=== PATIENT | male | born 1950 | race Caucasian/White ===

== ENCOUNTER 2022-09-10 06:06 | Inpatient (IN) ==
[2022-08-31 11:29] LABS: Basophils # (Auto) 0.05 K/mcL (0.00-0.30); Basophils % (Auto) 0.5 % (0.0-2.0); Eosinophils # (Auto) 0.17 K/mcL (0.00-0.70); Eosinophils % (Auto) 1.8 % (0.0-7.0); Hematocrit 35.6 % (40.1-51.0); Hemoglobin 11.3 g/dL (13.7-17.5); Lymphocytes # (Auto) 1.57 K/mcL (1.50-4.80); Lymphocytes % (Auto) 16.6 % (15.5-49.0); Mean Cell Volume 82.2 fL (80.0-100.0); Mean Corpuscular HGB Conc 31.7 g/dL (31.0-36.0); Mean Platelet Volume 8.4 fL (8.8-12.5); Monocytes # (Auto) 0.64 K/mcL (0.10-0.90); Monocytes % (Auto) 6.8 % (1.0-12.0); Platelet Count 451 K/mcL (140-440); RBC 4.33 M/mcL (4.63-6.08); Red Cell Distribution Width 14.3 % (11.5-14.5); WBC 9.4 K/mcL (4.5-11.0)
[2022-08-31 14:09] LABS: Blood Urea Nitrogen 15 mg/dL (8-23); Calcium 9.3 mg/dL (8.6-10.4); Carbon Dioxide 29 mmol/L (22-30); Chloride 93 mmol/L (96-108); Glomerular Filtration Rate 75; Glucose 92 mg/dL (70-105)
[~2022-09-10 06:06] MED LIST: IPRATROPIUM/ALBUTEROL 3 ML AMPUL.NEB NEB PRN; SCOPOLAMINE 1 PATCH PATCH TOPICAL PRN; ceFAZolin 2 GM in DEXTROSE 5% IN WATER 50 ML IV SCH
[2022-09-10] MEDS ORDERED: 0.9 % SODIUM CHLORIDE 250 ML IV SCH (07:15)
[2022-09-10] MEDS ORDERED: fentaNYL 250 MCG/5 ML VIAL IV ONE (08:32)
[2022-09-10] MEDS ORDERED: PHENYLephrine 1 MG/10 ML SYRINGE (ANEST) ONE (08:32)
[2022-09-10] MEDS ORDERED: DEXAMETHASONE 10 MG/ML VIAL ONE (08:32)
[2022-09-10] MEDS ORDERED: 0.9 % SODIUM CHLORIDE 1,000 ML BAG IV ONE (08:32)
[2022-09-10] MEDS ORDERED: LIDOCAINE HCL/PF 100 MG/5 ML SYRINGE IV ONE (08:32)
[2022-09-10] MEDS ORDERED: ROCURONIUM 10 MG/ML ML IV ONE (08:32)
[2022-09-10] MEDS ORDERED: PROPOFOL 200 MG/20 ML VIAL IV ONE (08:32)
[2022-09-10] MEDS ORDERED: CALCIUM GLUCONATE 4.65 MEQ/10 ML VIAL ONE (08:32)
[2022-09-10] MEDS ORDERED: ceFAZolin 1 GM VIAL ONE (08:32)
[2022-09-10] MEDS ORDERED: ePHEDrine 50 MG/5 ML SYRINGE (ANEST) IV ONE (08:32)
[2022-09-10] MEDS ORDERED: ROPIVACAINE HCL/PF 20 ML VIAL IJ ONE (08:32)
[2022-09-10] MEDS ORDERED: SUGAMMADEX SODIUM 200 MG/2 ML VIAL IV ONE (08:32)
[2022-09-10] MEDS ORDERED: CALCIUM GLUCONATE 4.65 MEQ in DEXTROSE 5% IN WATER 50 ML IV SCH (12:00)
[2022-09-10] MEDS ORDERED: VANCOMYCIN 1 GM VIAL TOPICAL SCH (12:50)
[2022-09-10] MEDS ORDERED: LIDOCAINE W/EPI 0.5% 50 ML VIAL IJ ONE (12:57)
[2022-09-10] MEDS ORDERED: BUPIVACAINE PF 0.5% 10 ML VIAL IJ ONE (12:57)
[2022-09-10] MEDS ORDERED: NALOXONE HCL 0.4 MG/ML VIAL IV PRN (13:17)
[2022-09-10] MEDS ORDERED: IPRATROPIUM/ALBUTEROL 3 ML AMPUL.NEB NEB PRN (13:17)
[2022-09-10] MEDS ORDERED: HYDROmorphone 0.5 MG/0.5 ML SYRINGE IV PRN (13:17)
[2022-09-10] MEDS ORDERED: fentaNYL 100 MCG/2 ML VIAL IV PRN (13:17)
[2022-09-10] MEDS ORDERED: ACETAMINOPHEN 1,000 MG/100 ML BAG IV ONE (13:17)
[2022-09-10] MEDS ORDERED: ONDANSETRON 4 MG/2 ML VIAL IV PRN ×2 (13:17→13:55)
[2022-09-10] MEDS ORDERED: LACTATED RINGERS 1,000 ML IV SCH (13:30)
--- NOTE | 2022-09-10 13:50 | Operative Note ---
Brief Operative Note Date of procedure: 09/10/22 Pre-op diagnosis: Possible right renal mass., Right flank pain Post-op diagnosis: same Procedure: Right open nephro-ureterectomy. Grafts/Implants: Yes (22 Upper Sorbian Balderas catheter with 10 mL in balloon) Anesthesia: GETA Findings: Hard, indurated right kidney. Kidney abuts vena cava with almost between the kidney and vena cava. Complications: other (Small tear of vena cava less than 1 cm, repaired. He has been) Surgeon: Tristen Nicole Lay Out Worker: Fabricio Dietz Estimated blood loss (cc): 1,200 Specimens Removed/Pathology: other (Right kidney and right ureter with bladder cuff.) Condition: other (Guarded) Disposition: PACU Operative Note Operative Note: After obtaining informed consent from the patient, he was brought to the operating was placed supine on the operating table. A bump was placed under his right flank. General anesthesia was provided. He was prepped and draped in the usual sterile fashion. Attention was directed to the midline approximately 2 fingerbreadths below the xiphoid process. Midline incision was made to just below the umbilicus. This is carried down through subcutaneous tissues and fascia until the peritoneum was encountered. We entered the peritoneum and then removed open the remaining portion of the wound. Using a Bookwalter retractor we then placed the retractor retracting the liver out of the way. We identified the line of Toldt on the right side and incised it. There were numerous bowel adhesions that were taken down. The colon was retracted to the patient's left side. We carried out our dissection until we exposed the right renal hilum. The kidney was identified and seen to have almost no Gerota's fascia. The k idney was enlarged, hard and indurated. We identified the hilum. We identified the right ureter which had a stent in it. Dissection of the hilum was extremely difficult due to severe inflammation and induration. We were able to identify the renal vein but there was not more than 1 cm between the renal hilum and the vena cava. The renal artery was identified immediately posterior to the renal vein. After considerable dissection we were able to get a vessel loop around the right renal vein. A second vessel loop was also placed. We were then able to identify the right renal vein and dissected free. An 0 silk tie was placed around the right renal vein. We then placed a #1 silk tie around the right renal vein. A second #1 silk tie was placed distal to the first with a stick tie. A #1 silk tie was placed on the kidney side of the renal vein with a clip. We then divided the renal vein. Immediately the vena cava retracted and a tear was seen just superior to the renal vein which may have been a accessory renal vein. The patient immediately lost a large amount of blood. The bleeding was controlled using vascular clamps above and below the area of tear. Once the bleeding was controlled we repaired the vena cava using 2-0 Prolene suture in 2 layers. Blood was previously ordered and 2 units were given. Once this repair was completed and the clamps were removed there was no leak seen of the vena cava. 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 This was oversewn using a 4-0 Prolene suture. Once we were in assured that there was no further venal caval bleeding the remainder of the kidney was removed by dissecting the posterior and superior attachments using the LigaSure device. Care was taken not to injure the liver, or bowel. The right ureter was opened slightly and the right ureteral stent was removed. The ureter was then immediately clipped distally and proximally to avoid any spillage. The proximal portion of the ureter was removed with the right renal specimen. The distal portion remained. The kidney was then freed and was passed off the table to be sent for frozen section to see whether there was urothelial carcinoma within the kidney. 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 Based upon this information we decided to proceed with right ureterectomy with bladder cuff. This incision was carried down in the midline to the pubic symphysis. The bladder was then identified. The bladder was filled. We opened the bladder in the midline. The Balderas catheter was then removed. The right ureteral orifice was identified and a 5 Upper Sorbian feeding tube was placed in the right ureter sutures were placed within it for retraction. Using electrocautery we incised around the right ureteral orifice within the bladder. I also dissected the ureter free exterior to the bladder down to the posterior bladder. The bladder cuff was freed and the ureter was removed and passed off the table as a second specimen. We then closed to the right ureteral opening within the bladder using a 2-0 chromic suture in a running fashion. The bladder was then irrigated. The bladder was closed in 2 layers using a 2-0 chromic suture to close the mucosa followed by 0 Vicryl suture in a running stitch. A new 22 Upper Sorbian Balderas catheter was then easily passed in the bladder and the balloon was inflated with 10 mL of sterile water. The bladder was then filled for testing and a small leak was seen which was then oversewn. The catheter was hand irrigated and ran clear pink. The patient appeared to be making significant urine. We then directed our attention back to the vena cava which continued to show no evidence of further bleeding. Tisseel was placed over the repair of the vena cava and over the renal hilum. This was followed by Gelfoam. We then replaced the colon in its anatomic position and omentum over this. We then performed our needle and lap sponge counts and all counts were correct. We placed a round #15 VANESA drain in the left lower quadrant. The wound was then closed in 2 layers. The first layer closed the peritoneum using a running 2-0 Vicryl suture. The fascia was then closed using a 0 looped PDS 1 starting cephalad and the other caudad tying them below the umbilicus. The closure appeared to be good. The end of the PDS suture was buried using a 2-0 Vicryl suture. The skin was then closed using erica. A dressing was applied. The patient was then provided with a block. He was awakened and returned to the recovery room in guarded condition.
[2022-09-10] MEDS: DEXTROSE 5%-NS 1,000 ML IV SCH (15:16)
[2022-09-10] MEDS: 0.9 % SODIUM CHLORIDE 10 ML SYRINGE IV SCH ×2 (15:17→20:49)
[2022-09-10] MEDS: HYDROmorphone PCA 30 MG/30 ML PCA.VIAL IV PRN (15:17)
[2022-09-10] MEDS: 0.9 % SODIUM CHLORIDE 250 ML IV SCH (15:34)
[2022-09-10] MEDS: NICOTINE 21 MG PATCH TOPICAL SCH (15:39)
[2022-09-10 15:46] LABS: Basophils # (Auto) 0.03 K/mcL (0.00-0.30); Basophils % (Auto) 0.2 % (0.0-2.0); Eosinophils # (Auto) 0 K/mcL (0.00-0.70); Eosinophils % (Auto) 0 % (0.0-7.0); Hematocrit 36.6 % (40.1-51.0); Hemoglobin 11.8 g/dL (13.7-17.5); Lymphocytes # (Auto) 0.55 K/mcL (1.50-4.80); Lymphocytes % (Auto) 4.4 % (15.5-49.0); Mean Cell Volume 84.5 fL (80.0-100.0); Mean Corpuscular HGB Conc 32.2 g/dL (31.0-36.0); Mean Platelet Volume 8.5 fL (8.8-12.5); Monocytes # (Auto) 0.46 K/mcL (0.10-0.90); Monocytes % (Auto) 3.7 % (1.0-12.0); Neutrophils % (Auto) 91.2 % (38.0-78.0); Platelet Count 445 K/mcL (140-440); RBC 4.33 M/mcL (4.63-6.08); Red Cell Distribution Width 14.4 % (11.5-14.5); WBC 12.5 K/mcL (4.5-11.0)
[2022-09-10 15:57] LABS: Blood Urea Nitrogen 13 mg/dL (8-23); Calcium 8.2 mg/dL (8.6-10.4); Carbon Dioxide 26 mmol/L (22-30); Chloride 96 mmol/L (96-108); Glomerular Filtration Rate 60; Glucose 162 mg/dL (70-105)
--- NOTE | 2022-09-10 16:13 | Internal Medicine Consult Note ---
HPI Date of Consult Consult Date: 09/10/22 Primary Care Provider: Kirill Garg MD Consult Narrative Patient Information: Note initiated : 09/10/22 at 4:11 pm Service Date, if different from initiated Date: [] Patient: Alek Jimenez 71 y/o M admitted on 09/10/22 for Right Radical Nephrectomy, Possible Right. Chief Complaint: [] cc:: CC: Tristen Nicole MD Patient underwent right nephrectomy for renal mass. Intraoperatively patient had significant blood loss secondary to kidney abutting the vena cava resulting in a small tear. Patient developed hypotension and was given several units of red blood cells as well as IV fluids with improvement. Blood pressure still soft with mild episodes of hypotension. Patient monitored in the ICU on IV fluids. Labs today show anemia thrombocytosis-hyponatremia mild and mild white blood cell count. Patient denies any dizziness lightheadedness currently. No chest pain or shortness of breath. Patient has a history of hypertension hyperlipidemia COPD Review of Systems: Pertinent positives as above. Denies headache/fever/chills/nausea/vomiting/chest pain/cough/dyspnea/diarrhea. Remaining 10 point review of system reviewed negative PFSH PFSH All Active Problems Foot pain, right (Chronic) Emphysema lung (Chronic) Impacted cerumen, left ear (Chronic) Displaced fracture of triquetrum [cuneiform] bone, right wrist, initial encounter for closed fracture (Chronic) Contusion of right hand, initial encounter (Chronic) Tobacco smoker within last 12 months (Chronic) Cervical radiculopathy due to degenerative joint disease of spine (Chronic) Impingement syndrome, shoulder, left (Chronic) Shoulder pain, left (Chronic) Inguinal hernia, bilateral (Chronic) Hypertension (Chronic) Mixed hyperlipidemia (Chronic) Dermatitis (Chronic) Encounter for long-term (current) use of medications (Chronic) Fatigue (Chronic) History of hernia surgery (Chronic ~2012) History of appendectomy (Chronic ~1996) Impacted cerumen of both ears (Acute) Intertrigo (Acute) Low back pain (Acute) History of tobacco abuse (Acute) Elevated serum creatinine (Acute) Right flank pain (Acute) Hydronephrosis, right (Acute) Pyelonephritis (Acute) Hematuria (Acute) Pyelonephritis of right kidney (Acute) Acute urinary obstruction (Acute) Urinary retention (Acute) BPH with obstruction/lower urinary tract symptoms (Chronic) Abnormal finding on diagnostic imaging of right kidney (Acute) Medical History Cervical radiculopathy due to degenerative joint disease of spine Contusion of right hand, initial encounter Dermatitis Displaced fracture of triquetrum [cuneiform] bone, right wrist, initial encounter for closed fracture Emphysema lung Encounter for long-term (current) use of medications Fatigue Foot pain, right Hypertension Impacted cerumen, left ear Impingement syndrome, shoulder, left Inguinal hernia, bilateral Mixed hyperlipidemia Shoulder pain, left Tobacco smoker within last 12 months Surgical History History of appendectomy (~1996) x2 History of hernia surgery (~2012) Family History Father CAD (coronary artery disease) Mother No problems noted. Social History household members: spouse marital status: occupational status: employed occupation: multimedia designer smoking status: Current every day smoker alcohol intake frequency: holiday/special occasion only substance use type: does not use MEDS/ALLERGIES Home Medications and Allergies Home Medications Medication Instructions Recorded Confirmed Type albuterol sulfate 90 mcg/actuation 2 puff inhalation .Q4-6H PRN 09/29/19 09/10/22 History aerosol inhaler (Ventolin HFA) shortness of breath or wheezing tamsulosin 0.4 mg capsule 0.4 mg PO QHS #30 caps 05/19/22 09/10/22 Rx amitriptyline 10 mg tablet 10 mg PO TID 06/25/22 09/10/22 History atenolol 50 mg-chlorthalidone 25 1 tab PO QAM 06/25/22 09/10/22 History mg tablet fluticasone 100 mcg-salmeterol 50 1 inh inhalation BID #60 ea 07/13/22 09/10/22 Rx mcg/dose blistr powdr for inhalation (Wixela Inhub) tiotropium bromide 1.25 2 puff inhalation QDAY #4 grams 07/13/22 09/10/22 Rx mcg/actuation mist for inhalation (Spiriva Respimat) nicotine 21 mg/24 hr daily 1 patch transdermal Q24H #28 ea 08/18/22 08/31/22 Rx transdermal patch (Nicoderm CQ) simvastatin 40 mg tablet 40 mg PO QAM 08/31/22 09/10/22 History hydrocodone 5 mg-acetaminophen 325 1 tab PO Q6H PRN pain #78 tabs 09/02/22 09/10/22 Rx mg tablet Allergies Allergy/AdvReac Type Severity Reaction Status Date / Time No Known Drug Allergies Allergy Verified 07/07/22 15:03 EXAM Constitutional Vitals: Temp Pulse Resp BP Pulse Ox O2 Del Method O2 Flow Rate 98.8 F 70 16 90/61 92 2 09/10/22 14:53 09/10/22 14:53 09/10/22 15:46 09/10/22 14:53 09/10/22 15:46 09/10/22 15:46 09/10/22 15:46 Exam: General: Alert, Awake, No acute Distress Eyes/N/T: EOMI, PERRL, Head/Neck: neck supple, normocephalic atraumatic CV: RRR, No murmurs, normal s1/s2 Pulm: Clear b/l, no wheezing/rhonchi/rales Abd: soft, nontender, +BS x4 Ext: no clubbing/cyanosis/edema Neuro: Alert, no focal deficits, moves all extremities, CN 2-12 grossly intact, sensations intact b/l upper/lower Skin: Pale DATA Data Completed and Pending Labs: Labs from last 24 hours 09/10/22 09/10/22 09/10/22 14:18 14:18 14:18 WBC Pending RBC Pending Hgb Pending Hct Pending MCV Pending MCH Pending MCHC Pending RDW Pending Plt Count Pending MPV Pending Immature Gran % (Auto) Pending Neut % (Auto) Pending Lymph % (Auto) Gage % (Auto) Eos % (Auto) Baso % (Auto) Lymph # (Auto) Gage # (Auto) Eos # (Auto) Baso # (Auto) Immature Gran # Pending Absolute Neutrophils Sodium Pending 132 L Potassium Pending 4.4 Chloride Pending 96 Carbon Dioxide Pending 26 Anion Gap Pending 10.0 BUN Pending 13 Creatinine Pending 1.2 GFR Calculation Pending 60 Glucose Pending 162 H Calcium 8.2 L Ionized Calcium Sukumar Pending 09/10/22 14:18 WBC 12.5 H RBC 4.33 L Hgb 11.8 L Hct 36.6 L MCV 84.5 MCH 27.3 MCHC 32.2 RDW 14.4 Plt Count 445 H MPV 8.5 L Immature Gran % (Auto) 0.5 Neut % (Auto) 91.2 H Lymph % (Auto) 4.4 L Gage % (Auto) 3.7 Eos % (Auto) 0 Baso % (Auto) 0.2 Lymph # (Auto) 0.55 L Gage # (Auto) 0.46 Eos # (Auto) 0 Baso # (Auto) 0.03 Immature Gran # 0.06 H Absolute Neutrophils 11.36 H Sodium Potassium Chloride Carbon Dioxide Anion Gap BUN Creatinine GFR Calculation Glucose Calcium Ionized Calcium Sukumar A/P Narrative A/P Narrative: A: *Right renal mass: s/p nephro-ureterectomy (09/10) -suspected malignant *Acute blood loss anemia on chronic: 2/2 above *Hypotension: 2/2 above *Thrombocytosis: Likely reactive from above *Hyponatremia: *Tobacco abuse: *COPD (not on home oxygen): P: -monitor H&H, transfuse if <7 or symptomatic or further bleeding -IVF, maintain map>65 -Monitor vitals closely -icu monitoring -monitor uop, i/o's -hold BB/chlorthalidone for hypotension -cont home IH's, statin -Smoking cessation counseling >3 minutes -pt/ot -ppx: SCD(chemical held for bleeding event) Time Spent With Patient Time: Total time spent is greater than 50% in coordination of care (as documented) at patient's floor/unit and/or counseling patient: Critical Care Time: Yes Total Critical Care Time: 50
[2022-09-10] MEDS ORDERED: LABETALOL 5 MG/ML ML IV PRN (16:43)
[2022-09-10 18:43] LABS: Hematocrit 36.7 % (40.1-51.0); Hemoglobin 11.8 g/dL (13.7-17.5)
[2022-09-10] MEDS: ACETAMINOPHEN 650 MG/65 ML BAG IV PRN (22:52)
[2022-09-11] MEDS: DEXTROSE 5%-NS 1,000 ML IV SCH ×2 (01:48→16:08)
[2022-09-11] MEDS: ACETAMINOPHEN 650 MG/65 ML BAG IV PRN ×3 (04:48→21:08)
[2022-09-11] MEDS: 0.9 % SODIUM CHLORIDE 10 ML SYRINGE IV SCH ×3 (06:28→22:14)
[2022-09-11 06:59] LABS: Hematocrit 34.2 % (40.1-51.0); Hemoglobin 10.6 g/dL (13.7-17.5)
[2022-09-11] MEDS ORDERED: OPIUM/BELLADONNA ALKALOIDS 30 MG SUPP.RECT PR PRN (07:31)
[2022-09-11 07:35] LABS: ALT/SGPT 17 U/L (<40); AST/SGOT 29 U/L (<40); Albumin 2.3 gm/dL (3.2-5.2); Albumin/Globulin Ratio 0.8 (1.0-2.3); Alkaline Phosphatase 64 U/L (39-117); Bilirubin,Direct < 0.2 mg/dL (0-0.3); Bilirubin,Total 0.3 mg/dL (0.1-1.0); Blood Urea Nitrogen 17 mg/dL (8-23); Calcium 8.4 mg/dL (8.6-10.4); Carbon Dioxide 23 mmol/L (22-30); Chloride 99 mmol/L (96-108); Glomerular Filtration Rate 43; Glucose 190 mg/dL (70-105); Lactate Dehydrogenase 168 U/L (135-225); Phosphorous 4.5 mg/dL (2.5-4.5); Triglycerides 64 mg/dL (<150)
--- NOTE | 2022-09-11 07:59 | Internal Med Progress Note ---
SUBJECTIVE Subjective Patient information: Note initiated : 09/11/22 at 7:56 am Service Date, if different from initiated Date: [] Patient: Alek Jimenez 71 y/o M admitted on 09/10/22 for Right Radical Nephrectomy, Possible Right. Chief Complaint: [] Interval history: Patient underwent right nephrectomy for renal mass. Intraoperatively patient h ad significant blood loss secondary to kidney abutting the vena cava resulting in a small tear. Patient developed hypotension and was given several units of red blood cells as well as IV fluids with improvement. Blood pressure still soft with mild episodes of hypotension. Patient monitored in the ICU on IV fluids. Labs today show anemia thrombocytosis-hyponatremia mild and mild white blood cell count. Patient denies any dizziness lightheadedness currently. No chest pain or shortness of breath. Patient has a history of hypertension hyperlipidemia COPD 09/11 Patient feeling better and doing well. Blood work stable. Blood pressure stable but soft. Patient denies any dizziness lightheadedness chest pain or shortness of breath. Creatinine did elevate likely secondary to hypotension episodes. Monitor urine output and renal function. Review of Systems: denies headache/fever/chills/nausea/vomiting/chest or abdominal pain/cough/dyspnea/diarrhea. Otherwise see above. Constitutional Vitals: Vital Signs Temp Pulse Resp BP Pulse Ox O2 Del Method O2 Flow Rate 97.2 F 85 85 H 104/65 94 2 09/11/22 05:04 09/11/22 07:00 09/11/22 07:08 09/11/22 07:00 09/11/22 07:08 09/11/22 07:08 09/11/22 02:00 Period Temp Pulse Resp BP Sys/Traore Pulse Ox O2 Del Method O2 Flow Rate Last 24 Hr 97 F-98.8 F 69-89 10-85 79-138/52-84 90-100 Nasal Cannula- Simple Mask 2-6 Intake and Output 09/10/22 09/11/22 09/11/22 19:59 03:59 11:59 Intake Total 3350 855 65 Output Total 2110 395 5 Balance 1240 460 60 Weight 74.871 kg Intake & Output: Intake & Output 09/10/22 09/11/22 09/11/22 19:59 03:59 11:59 Intake Total 3350 855 65 Output Total 2110 395 5 Balance 1240 460 60 Weight 74.871 kg Intake: IV 100 855 65 Dextrose 5%-Ns IV Solution 1, 790 000 ml @ 75 mls/hr IV .[id number] [facility] Rx#:[id number] IV - Manual Only 3250 Output: Drainage 30 5 Abdomen VANESA Drain 30 5 Drainage 15 15 Abdomen VANESA Drain 15 15 Urine Catheter Amount 595 350 Estimated Blood Loss 1500 Other: Urine Appearance Clear Hematuria Uretheral (Balderas) Clear Hematuria Hematuria Urine Color Yellow Red Brown Blood Tinged Blood Tinged Blood Tinged Uretheral (Balderas) Yellow Red Brown Blood Tinged Blood Tinged Blood Tinged Urine Odor Normal Uretheral (Balderas) Normal Exam: General: Alert, Awake, No acute Distress Eyes/N/T: EOMI, Head/Neck: neck supple, CV: RRR, No murmurs, Pulm: Clear b/l, no wheezing/rhonchi/rales Abd: soft, nontender, +BS x4 Ext: no clubbing/cyanosis/edema Neuro: Alert, no focal deficits, moves all extremities, Skin: Pale OBJ DATA Labs CBC & Chem 7: 09/11/22 05:25 09/11/22 05:25 Labs: Abnormal Lab Results 09/11/22 09/11/22 09/10/22 05:25 05:25 18:10 WBC RBC Hgb 10.6 L 11.8 L Hct 34.2 L 36.7 L Plt Count MPV Neut % (Auto) Lymph % (Auto) Lymph # (Auto) Immature Gran # Absolute Neutrophils Sodium Creatinine 1.6 H Glucose 190 H Calcium 8.4 L Total Protein 5.3 L Albumin 2.3 L Albumin/Globulin Ratio 0.8 L 09/10/22 09/10/22 14:18 14:18 WBC 12.5 H RBC 4.33 L Hgb 11.8 L Hct 36.6 L Plt Count 445 H MPV 8.5 L Neut % (Auto) 91.2 H Lymph % (Auto) 4.4 L Lymph # (Auto) 0.55 L Immature Gran # 0.06 H Absolute Neutrophils 11.36 H Sodium 132 L Creatinine Glucose 162 H Calcium 8.2 L Total Protein Albumin Albumin/Globulin Ratio Meds: Medications Albuterol Sulfate (Albuterol Sulfate 60 Puff Inhaler) 2 puff INH Q4HP PRN PRN Reason: shortness of breath or wheezin Amitriptyline HCl (Amitriptyline 10 Mg Tablet) 10 mg PO TID CRYSTAL Belladonna Alkaloids/Opium (Opium/Belladonna Alkaloids 30 Mg Supp.Rect) 30 mg [place] Q6HP PRN PRN Reason: BLADDER SPASMS Hydromorphone HCl (Hydromorphone Pretzel Twister 30 Mg/30 Ml Pretzel Twister.Vial) 0 mg IV UD PRN; Protocol PRN Reason: Pain Last Admin: 09/10/22 15:17 Dose: 30 mg Dextrose/Sodium Chloride (Dextrose 5%-Ns Iv Solution) 1,000 mls @ 75 mls/hr IV .[id number] CRYSTAL Last Admin: 09/11/22 01:48 Dose: 75 mls/hr Acetaminophen (Ofirmev) 650 mg in 65 mls @ 130 mls/hr IV Q6HP PRN; Protocol PRN Reason: PAIN/FEVER > 101 Last Infusion: 09/11/22 06:28 Dose: Infused Labetalol HCl (Labetalol 5 Mg/Ml Ml) 0 mg IV Q2HP PRN PRN Reason: Hypertension Nicotine (Nicotine 21 Mg Patch) 21 mg TOPICAL Q24H [facility] Last Admin: 09/10/22 15:39 Dose: 21 mg Ondansetron HCl (Ondansetron 4 Mg/2 Ml Vial) 4 mg IV Q6HP PRN; Protocol PRN Reason: Nausea And Vomiting Tiotropium [place] [ Spiriva Respimat] 1. 25 Mcg/Act 2 dose INH QDAY [facility] Sodium Chloride (0.9 % Sodium Chloride 10 Ml Syringe) 10 ml IV Q8 [facility] Last Admin: 09/11/22 06:28 Dose: Not Given A/P Narrative A/P Narrative: A: *Right renal mass: s/p nephro-ureterectomy (09/10) -suspected malignant *Acute blood loss anemia on chronic: 2/2 above *Hypotension: 2/2 above *NOAM on CKD II: 2/2 hypotension, possible ATN *Thrombocytosis: Likely reactive from above *Hyponatremia: improving *Tobacco abuse: *COPD (not on home oxygen): P: -monitor H&H, transfuse if <7 or symptomatic or further bleeding -IVF, maintain map>65 -Monitor renal fxn, uop, i/o -hold BB/chlorthalidone for hypotension/noam -cont home IH's, statin -Smoking cessation counseling -pt/ot -ppx: SCD(chemical held for bleeding event) Time Spent With Patient Time: Total time spent is greater than 50% in coordination of care (as documented) at patient's floor/unit and/or counseling patient: Total time spent with greater than 50% in coordination of care (as documented) a t patient's floor/unit and/or counseling patient:: 35 - 50 minutes
[2022-09-11] MEDS: AMITRIPTYLINE 10 MG TABLET PO SCH ×3 (09:11→20:42)
[2022-09-11] MEDS: TIOTROPIUM BROMIDE INH SCH ×2 (09:12→13:12)
--- NOTE | 2022-09-11 10:37 | Urology Progress Note ---
SUBJECTIVE Subjective Patient information: Note initiated : 09/11/22 at 10:31 am Service Date, if different from initiated Date: [] Patient: Alek Jimenez 71 y/o M admitted on 09/10/22 for Right Radical Nephrectomy, Possible Right. Chief Complaint: [Right renal mass] Principal diagnosis: Right renal mass status post right nephro ureterectomy Interval history: Alek is postoperative day #1 status post right nephro ureterectomy. Surgery yesterday was complicated by blood loss of approximately 1200 mL. 2 units of packed red cells were given intraoperatively. The patient has done well postoperatively. His pain is well controlled with the LOSS PREVENTION RESEARCH ENGINEER. He has ambulated at least 1 time since surgery. Constitutional Vitals: Vital Signs Temp Pulse Resp BP Pulse Ox O2 Del Method O2 Flow Rate 98.1 F 76 14 97/66 92 2 09/11/22 08:01 09/11/22 10:01 09/11/22 10:01 09/11/22 10:01 09/11/22 10:01 09/11/22 07:08 09/11/22 02:00 Period Temp Pulse Resp BP Sys/Traore Pulse Ox O2 Del Method O2 Flow Rate Last 24 Hr 97 F-98.8 F 69-89 10-85 79-132/52-84 90-100 Nasal Cannula-S imple Mask 2-6 Intake and Output 09/10/22 09/11/22 09/11/22 19:59 03:59 11:59 Intake Total 3350 855 65 Output Total 2110 395 180 Balance 1240 460 -115 Weight 74.871 kg Intake & Output: Intake & Output 09/10/22 09/11/22 09/11/22 19:59 03:59 11:59 Intake Total 3350 855 65 Output Total 2110 395 180 Balance 1240 460 -115 Weight 74.871 kg Intake: IV 100 855 65 Dextrose 5%-Ns IV Solution 1, 790 000 ml @ 75 mls/hr IV .[id number] [facility] Rx#:[id number] IV - Manual Only 3250 Output: Drainage 30 5 Abdomen VANESA Drain 30 5 Drainage 15 15 Abdomen VANESA Drain 15 15 Urine Catheter Amount 595 350 175 Estimated Blood Loss 1500 Other: Urine Appearance Clear Clear Uretheral (Balderas) Clear Hematuria Hematuria Urine Color Yellow Red Brown Dark Amy Blood Tinged Blood Tinged Dark [place] Uretheral (Balderas) Yellow Red Brown Blood Tinged Blood Tinged Blood Tinged Urine Odor Normal Uretheral ([place]) Normal General appearance: no acute distress and thin Head Head exam: Present atraumatic, normal inspection and normocephalic Neck Neck exam: Present normal inspection Respiratory Respiratory exam: Present normal respiratory exam and CTAB Cardiovascular Cardiovascular exam: Present normal rate and rhythm GI/Abdominal GI/Abdominal exam: Present soft, diminished bowel sounds and tenderness Additional comments: Incisional tenderness. The wound remains dressed. The dressing remains dry. exam: Present circumcision and normal inspection Additional comments: Balderas catheter in place Expanded Exam Urine Color: Medium Red Psychiatric Psychiatric exam: Present normal affect and normal mood A/P Assessment and plan (1) Right renal mass: Status: Acute Plan Alek is doing well postoperative day #1 status post right nephro ureterectomy. His hemoglobin remained stable at 10.6. His serum creatinine this morning is slightly elevated at 1.6. His urine is bloody this morning which is expected to his Balder[place] catheter remains in place and is draining. His VANESA drain has had about 30 mL of serosanguineous output. He has ambulated. On examination he has minimal bowel sounds. We discussed starting him on sips of clears including black coffee. We discussed transferring him from ICU to PCU and continuing ambulation. I expect that he may have an ileus so we will advance diet as tolerated. We will continue fluids due to his elevated serum creatinine. The hospitalist services also been consulted. We again discussed that a criteria for discharge would be tolerating a diet, tolerating pain with oral pain medication, and being able to ambulate on his own. Sepsis Sepsis Identified: No Narrative A/P Narrative: Alek is doing well postoperative day #1 status post right nephro ureterectomy. His hemoglobin remained stable at 10.6. His serum creatinine this morning is slightly elevated at 1.6. His urine is bloody this morning which is expected to his Balder[place] catheter remains in place and is draining. His VANESA drain has had about 30 mL of serosanguineous output. He has ambulated. On examination he has minimal bowel sounds. We discussed starting him on sips of clears including black coffee. We discussed transferring him from ICU to PCU and continuing ambulation. I expect that he may have an ileus so we will advance diet as tolerated. We will continue fluids due to his elevated serum creatinine. The hospitalist services also been consulted. We again discussed that a criteria for discharge would be tolerating a diet, tolerating pain with oral pain medication, and being able to ambulate on his own. Time Spent With Patient Time: Total time spent is greater than 50% in coordination of care (as documented) at patient's floor/unit and/or counseling patient: Total time spent with greater than 50% in coordination of care (as documented) at patient's floor/unit and/or counseling patient:: 15 - 24 minutes
[2022-09-11] MEDS: ceFAZolin 2 GM in DEXTROSE 5% IN WATER 50 ML IV SCH ×2 (12:06→22:15)
[2022-09-11] MEDS: ENOXAPARIN 40 MG/0.4 ML SYRINGE SQ SCH (13:30)
[2022-09-11] MEDS: NICOTINE 21 MG PATCH TOPICAL SCH (14:24)
[2022-09-11] MEDS ORDERED: AMITRIPTYLINE 10 MG TABLET PO SCH (15:00)
[2022-09-11] MEDS: HYDROmorphone PCA 30 MG/30 ML PCA.VIAL IV PRN ×2 (15:15→15:40)
[2022-09-11] MEDS: ALBUTEROL SULFATE 60 PUFF INHALER INH PRN (16:40)
[2022-09-11] MEDS: FLUTICASONE INH SCH (20:42)
[2022-09-11] MEDS: SALMETEROL INH SCH (20:42)
[2022-09-12] MEDS: 0.9 % SODIUM CHLORIDE 250 ML IV SCH ×2 (03:24→16:03)
[2022-09-12] MEDS: ceFAZolin 2 GM in DEXTROSE 5% IN WATER 50 ML IV SCH (05:15)
[2022-09-12] MEDS: DEXTROSE 5%-NS 1,000 ML IV SCH ×2 (05:15→20:26)
[2022-09-12] MEDS: 0.9 % SODIUM CHLORIDE 10 ML SYRINGE IV SCH ×3 (05:21→21:40)
[2022-09-12 07:12] LABS: Basophils # (Auto) 0.01 K/mcL (0.00-0.30); Basophils % (Auto) 0.1 % (0.0-2.0); Eosinophils # (Auto) 0.03 K/mcL (0.00-0.70); Eosinophils % (Auto) 0.3 % (0.0-7.0); Hematocrit 29.5 % (40.1-51.0); Hemoglobin 9.2 g/dL (13.7-17.5); Lymphocytes # (Auto) 1.41 K/mcL (1.50-4.80); Mean Cell Volume 86.3 fL (80.0-100.0); Mean Corpuscular HGB Conc 31.2 g/dL (31.0-36.0); Mean Platelet Volume 8.6 fL (8.8-12.5); Monocytes # (Auto) 0.64 K/mcL (0.10-0.90); Monocytes % (Auto) 5.9 % (1.0-12.0); Neutrophils % (Auto) 80.3 % (38.0-78.0); Platelet Count 323 K/mcL (140-440); RBC 3.42 M/mcL (4.63-6.08); Red Cell Distribution Width 14.9 % (11.5-14.5); WBC 10.8 K/mcL (4.5-11.0)
[2022-09-12 07:13] LABS: Blood Urea Nitrogen 22 mg/dL (8-23); Carbon Dioxide 27 mmol/L (22-30); Chloride 101 mmol/L (96-108); Glomerular Filtration Rate 55; Glucose 116 mg/dL (70-105)
[2022-09-12] MEDS: ACETAMINOPHEN 650 MG/65 ML BAG IV PRN ×3 (07:42→20:10)
--- NOTE | 2022-09-12 08:09 | Internal Med Progress Note ---
SUBJECTIVE Subjective Patient information: Note initiated : 09/12/22 at 8:07 am Service Date, if different from initiated Date: [] Patient: Alek Jimenez 71 y/o M admitted on 09/10/22 for Right Radical Nephrectomy, Possible Right. Chief Complaint: [] Principal diagnosis: Right renal mass status post right nephro ureterectomy Interval history: Patient underwent right nephrectomy for renal mass. Intraoperatively patient h ad significant blood loss secondary to kidney abutting the vena cava resulting in a small tear. Patient developed hypotension and was given several units of red blood cells as well as IV fluids with improvement. Blood pressure still soft with mild episodes of hypotension. Patient monitored in the ICU on IV fluids. Labs today show anemia thrombocytosis-hyponatremia mild and mild white blood cell count. Patient denies any dizziness lightheadedness currently. No chest pain or shortness of breath. Patient has a history of hypertension hyperlipidemia COPD 09/11 Patient feeling better and doing well. Blood work stable. Blood pressure stable but soft. Patient denies any dizziness lightheadedness chest pain or shortness of breath. Creatinine did elevate likely secondary to hypotension episodes. Monitor urine output and renal function. 09/12 Patient complains of heartburn and gas. Otherwise no new complaints. Hemoglobin has dropped some but only to 9.2. Vital signs stable. Creatinine elevated but improved Review of Systems: denies headache/fever/chills/nausea/vomiting/chest or abdominal pain/cough/dyspnea/diarrhea. Otherwise see above. Constitutional Vitals: Vital Signs Temp Pulse Resp BP Pulse Ox O2 Del Method O2 Flow Rate 98.5 F 81 33 H 122/73 100 1 09/12/22 00:01 09/12/22 07:01 09/12/22 07:01 09/12/22 07:01 09/12/22 07:01 09/12/22 06:01 09/12/22 05:01 Period Temp Pulse Resp BP Sys/Traore Pulse Ox O2 Del Method O2 Flow Rate Last 24 Hr 97.4 F-98.6 F 69-83 10-33 94-129/61-82 91-100 Nasal Cannula- Room Air 1-2 Intake and Output 09/11/22 09/12/22 09/12/22 19:59 03:59 11:59 Intake Total 2485 579 3096 Output Total 25 885 550 Balance 1090 -720 484 Weight 74.871 kg 76.113 kg Intake & Output: Intake & Output 09/11/22 09/12/22 09/12/22 19:59 03:59 11:59 Intake Total 4353 017 6208 Output Total 25 885 550 Balance 1090 -720 484 Weight 74.871 kg 76.113 kg Intake: IV 6098 230 0741 Dextrose 5%-Ns IV Solution 1, 1000 984 000 ml @ 75 mls/hr IV .[id number] [facility] Rx#:[id number] Ancef 2 gm In Dextrose 5% in 50 50 50 Water 50 ml @ 100 mls/hr IV Q8H [facility] Rx#:[id number] Oral 50 Output: Drainage 25 5 Abdomen VANESA Drain 25 5 Drainage 5 Abdomen VANESA Drain 5 Urine Catheter Amount 875 550 Other: Urine Appearance Hematuria Hematuria Uretheral (Balderas) Clear Hematuria Urine Color Blood Tinged Medium Red Uretheral (Balderas) Blood Tinged Blood Tinged Urine Odor Normal Normal Uretheral (Balderas) Normal Exam: General: Alert, Awake, No acute Distress Eyes/N/T: EOMI, Head/Neck: neck supple, CV: RRR, No murmurs, Pulm: Clear b/l, no wheezing/rhonchi/rales Abd: soft, nontender, +BS x4 Ext: no clubbing/cyanosis/edema Neuro: Alert, no focal deficits, moves all extremities, Skin: Pale OBJ DATA Labs CBC & Chem 7: 09/12/22 05:24 09/12/22 05:24 Labs: Abnormal Lab Results 09/12/22 09/12/22 09/11/22 05:24 05:24 05:25 WBC RBC 3.42 L Hgb 9.2 L Hct 29.5 L RDW 14.9 H Plt Count MPV 8.6 L Neut % (Auto) 80.3 H Lymph % (Auto) 13.0 L Lymph # (Auto) 1.41 L Immature Gran # Absolute Neutrophils 8.68 H Sodium Creatinine 1.3 H 1.6 H Glucose 116 H 190 H Calcium 8.4 L Ionized Calcium Sukumar 0.98 L Total Protein 5.3 L Albumin 2.3 L Albumin/Globulin Ratio 0.8 L 09/11/22 09/10/22 09/10/22 05:25 18:10 14:18 WBC RBC Hgb 10.6 L 11.8 L Hct 34.2 L 36.7 L RDW Plt Count MPV Neut % (Auto) Lymph % (Auto) Lymph # (Auto) Immature Gran # Absolute Neutrophils Sodium 132 L Creatinine Glucose 162 H Calcium 8.2 L Ionized Calcium Sukumar Total Protein Albumin Albumin/Globulin Ratio 09/10/22 14:18 WBC 12.5 H RBC 4.33 L Hgb 11.8 L Hct 36.6 L RDW Plt Count 445 H MPV 8.5 L Neut % (Auto) 91.2 H Lymph % (Auto) 4.4 L Lymph # (Auto) 0.55 L Immature Gran # 0.06 H Absolute Neutrophils 11.36 H Sodium Creatinine Glucose Calcium Ionized Calcium Sukumar Total Protein Albumin Albumin/Globulin Ratio Meds: Medications Hydrocodone Bitart/Acetaminophen (Hydrocodone/Apap 5/325mg Tablet) 1 tab PO Q6HP PRN; Protocol PRN Reason: pain Albuterol Sulfate (Albuterol Sulfate 60 Puff Inhaler) 2 puff INH Q4HP PRN PRN Reason: shortness of breath or wheezin Last Admin: 09/11/22 16:40 Dose: 2 puff Amitriptyline HCl (Amitriptyline 10 Mg Tablet) 10 mg PO TID [facility] Last Admin: 09/11/22 20:42 Dose: 10 mg Atenolol (Atenolol 50 Mg Tablet) 50 mg PO DAILY [facility] Belladonna Alkaloids/Opium (Opium/Belladonna Alkaloids 30 Mg Supp.Rect) 30 mg CA Q6HP PRN PRN Reason: BLADDER SPASMS Last Admin: 09/11/22 12:19 Dose: 30 mg Chlorthalidone (Chlorthalidone 25 Mg Tablet) 25 mg PO QAM [facility] Enoxaparin Sodium (Enoxaparin 40 Mg/0.4 Ml Syringe) 40 mg SQ DAILY [facility] Last Admin: 09/11/22 13:30 Dose: 40 mg Hydromorphone HCl (Hydromorphone Pointing Machine Operator 30 Mg/30 Ml Pointing Machine Operator.Vial) 0 mg IV UD PRN; Protocol PRN Reason: Pain Last Admin: 09/11/22 15:40 Dose: 30 mg Dextrose/Sodium Chloride (Dextrose 5%-Ns Iv Solution) 1,000 mls @ 75 mls/hr IV .[id number] [facility] Last Admin: 09/12/22 05:15 Dose: 75 mls/hr Acetaminophen (Ofirmev) 650 mg in 65 mls @ 130 mls/hr IV Q6HP PRN; Protocol PRN Reason: PAIN/FEVER > 101 Last Admin: 09/12/22 07:42 Dose: 130 mls/hr Cefazolin Sodium 2 gm/ (Dextrose) 50 mls @ 100 mls/hr IV Q8H [facility]; Protocol Last Infusion: 09/12/22 06:02 Dose: Infused Labetalol HCl (Labetalol 5 Mg/Ml Ml) 0 mg IV Q2HP PRN PRN Reason: Hypertension Nicotine (Nicotine 21 Mg Patch) 21 mg TOPICAL Q24H [facility] Last Admin: 09/11/22 14:24 Dose: 21 mg Ondansetron HCl (Ondansetron 4 Mg/2 Ml Vial) 4 mg IV Q6HP PRN; Protocol PRN Reason: Nausea And Vomiting Tiotropium [place] [ Spiriva Respimat] 1. 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 *Acute blood loss anemia on chronic: 2/2 above -hgb 9.2 *Hypotension: 2/2 above *NOAM on CKD II: 2/2 hypotension, possible ATN, *Thrombocytosis: Likely reactive from above *Hyponatremia: improving *Tobacco abuse: *COPD (not on home oxygen): *pyrosis/gas: P: -monitor H&H, transfuse if <7 or symptomatic or further bleeding -IVF, maintain map>65 -Monitor renal fxn, uop, i/o -restart home BB -carafate/simethacone -cont home IH's, statin -Smoking cessation counseling -pt/ot -ppx: lovenox Time Spent With Patient Time: Total time spent is greater than 50% in coordination of care (as documented) at patient's floor/unit and/or counseling patient: Total time spent with greater than 50% in coordination of care (as documented) at patient's floor/unit and/or counseling patient:: 35 - 50 minutes
[2022-09-12] MEDS: ENOXAPARIN 40 MG/0.4 ML SYRINGE SQ SCH (09:15)
[2022-09-12] MEDS: ATENOLOL 50 MG TABLET PO SCH (09:16)
[2022-09-12] MEDS: AMITRIPTYLINE 10 MG TABLET PO SCH ×3 (09:20→21:40)
[2022-09-12] MEDS: CHLORTHALIDONE 25 MG TABLET PO SCH (09:20)
[2022-09-12] MEDS ORDERED: SUCRALFATE 1 GM/10 ML ORAL.SUSP PO ONE (09:28)
[2022-09-12] MEDS: SIMETHICONE 80 MG TAB.CHEW CHEWED SCH ×4 (09:39→21:40)
--- NOTE | 2022-09-12 09:58 | Urology Progress Note ---
SUBJECTIVE Subjective Patient information: Note initiated : 09/12/22 at 9:51 am Service Date, if different from initiated Date: [] Patient: Alek Jimenez 71 y/o M admitted on 09/10/22 for Right Radical Nephrectomy, Possible Right. Chief Complaint: [] Principal diagnosis: Right renal mass status post right nephro ureterectomy Interval history: Patient states he is doing well, ambulated without difficulty yesterday, tolera ting clears. Pain is well controlled with COMMISSIONING SPECIALIST. Pertinent ROS: Denies any nausea Denies chest pain or shortness of breath No headache or lightheadedness Constitutional Vitals: Vital Signs Temp Pulse Resp BP Pulse Ox O2 Del Method O2 Flow Rate 99.1 F H 81 35 H 128/71 95 1 09/12/22 08:01 09/12/22 09:01 09/12/22 09:01 09/12/22 09:01 09/12/22 09:01 09/12/22 06:01 09/12/22 05:01 Period Temp Pulse Resp BP Sys/Traore Pulse Ox O2 Del Method O2 Flow Rate Last 24 Hr 97.4 F-99.1 F 69-83 10-35 94-158/61-82 91-100 Nasal Cannula- Room Air 1-2 Intake and Output 09/11/22 09/12/22 09/12/22 19:59 03:59 11:59 Intake Total 3973 879 6785 Output Total 25 885 850 Balance 1090 -720 609 Weight 74.871 kg 76.113 kg Intake & Output: Intake & Output 09/11/22 09/12/22 09/12/22 19:59 03:59 11:59 Intake Total 9835 247 3728 Output Total 25 885 850 Balance 1090 -720 609 Weight 74.871 kg 76.113 kg Intake: IV 3760 926 0331 Dextrose 5%-Ns IV Solution 1, 1000 984 000 ml @ 75 mls/hr IV .[id number] [facility] Rx#:[id number] Ancef 2 gm In Dextrose 5% in 50 50 50 Water 50 ml @ 100 mls/hr IV Q8H [facility] Rx#:[id number] Oral 50 360 Output: Drainage 25 5 Abdomen VANESA Drain 25 5 Drainage 5 Abdomen VANEAS Drain 5 Urine Catheter Amount 875 850 Other: Meal Breakfast Percent of Meal Consumed 50% Feeding Ability Independent Urine Appearance Hematuria Clear Uretheral (Balderas) Clear Hematuria Urine Color Blood Tinged Bright Yellow Uretheral (Balderas) Blood Tinged Blood Tinged Urine Odor Normal Normal Uretheral (Balderas) Normal Respiratory Respiratory exam: Present normal respiratory exam and CTAB GI/Abdominal GI/Abdominal exam: Present soft and diminished bowel sounds; Absent distended Additional comments: Dressing intact, clean and dry Additional comments: Normal penis, no scrotal edema, Balderas catheter in place draining light pink urine Extremities Exam Extremities exam: Present full ROM and normal inspection; Absent calf tenderness Additional findings Additional findings: Labs noted, creatinine improved (1.3). Hemoglobin decreased to 9.2 A/P Assessment and plan (1) Right renal mass: Status: Acute Plan Patient is postop day 2 from right nephro ureterectomy. Making excellent progress. Vital signs stable, minimal output from his drain, patient ambulating well, and pain well controlled with COMMISSIONING SPECIALIST. Patient advised to ambulate at least 3 or 4 times today. Continue with clear liquids at this time. Continue to follow patient's laboratory (CBC and creatinine). Hospitalist assistance appreciated Sepsis Sepsis Identified: No Time Spent With Patient Time: Total time spent is greater than 50% in coordination of care (as documented) at patient's floor/unit and/or counseling patient:
[2022-09-12] MEDS: TIOTROPIUM BROMIDE INH SCH (10:19)
[2022-09-12] MEDS: SALMETEROL INH SCH ×2 (10:20→21:39)
[2022-09-12] MEDS: FLUTICASONE INH SCH ×2 (10:20→21:39)
[2022-09-12] MEDS: ceFAZolin 1 GM VIAL IV SCH ×2 (14:07→21:40)
[2022-09-12] MEDS: NICOTINE 21 MG PATCH TOPICAL SCH (14:45)
[2022-09-13] MEDS: 0.9 % SODIUM CHLORIDE 250 ML IV SCH ×2 (04:25→15:55)
[2022-09-13] MEDS: ceFAZolin 1 GM VIAL IV SCH ×3 (05:54→21:38)
[2022-09-13] MEDS: 0.9 % SODIUM CHLORIDE 10 ML SYRINGE IV SCH ×3 (05:54→20:04)
[2022-09-13 07:16] LABS: Blood Urea Nitrogen 18 mg/dL (8-23); Calcium 8.5 mg/dL (8.6-10.4); Carbon Dioxide 27 mmol/L (22-30); Chloride 99 mmol/L (96-108); Glomerular Filtration Rate 67; Glucose 104 mg/dL (70-105)
[2022-09-13 07:55] LABS: Hematocrit 29.6 % (40.1-51.0); Hemoglobin 9.4 g/dL (13.7-17.5); Mean Cell Volume 84.8 fL (80.0-100.0); Mean Corpuscular HGB Conc 31.8 g/dL (31.0-36.0); Mean Platelet Volume 8.9 fL (8.8-12.5); Platelet Count 345 K/mcL (140-440); RBC 3.49 M/mcL (4.63-6.08)
--- NOTE | 2022-09-13 08:13 | Internal Med Progress Note ---
SUBJECTIVE Subjective Patient information: Note initiated : 09/13/22 at 8:11 am Service Date, if different from initiated Date: [] Patient: Alek Jimenez 71 y/o M admitted on 09/10/22 for Right Radical Nephrectomy, Possible Right. Chief Complaint: [] Principal diagnosis: Right renal mass status post right nephro ureterectomy Interval history: Patient underwent right nephrectomy for renal mass. Intraoperatively patient h ad significant blood loss secondary to kidney abutting the vena cava resulting in a small tear. Patient developed hypotension and was given several units of red blood cells as well as IV fluids with improvement. Blood pressure still soft with mild episodes of hypotension. Patient monitored in the ICU on IV fluids. Labs today show anemia thrombocytosis-hyponatremia mild and mild white blood cell count. Patient denies any dizziness lightheadedness currently. No chest pain or shortness of breath. Patient has a history of hypertension hyperlipidemia COPD 09/11 Patient feeling better and doing well. Blood work stable. Blood pressure stable but soft. Patient denies any dizziness lightheadedness chest pain or shortness of breath. Creatinine did elevate likely secondary to hypotension episodes. Monitor urine output and renal function. 09/12 Patient complains of heartburn and gas. Otherwise no new complaints. Hemoglobin has dropped some but only to 9.2. Vital signs stable. Creatinine elevated but improved 09/13 Pyrosis improved after Carafate and simethicone yesterday. Has headache. Gross hematuria in Balderas. Hold Lovenox today. Hemoglobin stable. Creatinine improved. Review of Systems: denies fever/chills/nausea/vomiting/chest or abdominal pain/cough/dyspnea/diarrhea. Otherwise see above. Constitutional Vitals: Vital Signs Temp Pulse Resp BP Pulse Ox O2 Del Method O2 Flow Rate 97.9 F 69 33 H 133/74 95 1 09/13/22 08:01 09/13/22 07:01 09/13/22 08:01 09/13/22 08:01 09/13/22 08:01 09/13/22 07:01 09/13/22 07:01 Period Temp Pulse Resp BP Sys/Traore Pulse Ox O2 Del Method O2 Flow Rate Last 24 Hr 97.4 F-98 F 64-88 12-35 100-133/63-95 90-100 Nasal Cannula- Nasal Cannula 1-2 Intake and Output 09/12/22 09/13/22 09/13/22 19:59 03:59 11:59 Intake Total 1315 165 297 Output Total 740 381 675 Balance 575 -216 -378 Weight 75.795 kg Intake & Output: Intake & Output 09/12/22 09/13/22 09/13/22 19:59 03:59 11:59 Intake Total 1315 165 297 Output Total 740 381 675 Balance 575 -216 -378 Weight 75.795 kg Intake: IV 1315 65 247 Sodium Chloride 0.9% 250 ml @ 250 247 20 mls/hr IV .[id number] [facility] Rx#: [id number] Dextrose 5%-Ns IV Solution 1, 1000 000 ml @ 75 mls/hr IV .[id number] [facility] Rx#:[id number] Oral 100 50 Output: Drainage 15 3 Abdomen VANESA Drain 15 3 Drainage 3 Abdomen VANESA Drain 3 Urine Catheter Amount 725 375 675 Other: Urine Appearance Clear Hematuria Hematuria Uretheral (Balderas) Hematuria Hematuria Small Blood Clots Small Blood Clots Urine Color Medium Red Medium Red Light Red Uretheral (Balderas) Light [place] Urine Odor Normal Normal Exam: General: Alert, Awake, No acute Distress Eyes/N/T: EOMI, Head/Neck: neck supple, CV: RRR, No murmurs, Pulm: Clear b/l, no wheezing/rhonchi/rales Abd: soft, nontender, +BS x4 Ext: no clubbing/cyanosis/edema : Balderas bag in place with hematuria Neuro: Alert, no focal deficits, moves all extremities, Skin: Pale OBJ DATA Labs CBC & Chem 7: 09/13/22 05:25 09/13/22 05:25 Labs: Abnormal Lab Results 09/13/22 09/13/22 09/12/22 05:25 05:25 05:24 WBC RBC 3.49 L Hgb 9.4 L Hct 29.6 L RDW 15.0 H Plt Count MPV Neut % (Auto) Lymph % (Auto) Lymph # (Auto) Immature Gran # Absolute Neutrophils Sodium Creatinine 1.3 H Glucose 116 H Calcium 8.5 L Ionized Calcium Sukumar 0.98 L Total Protein Albumin Albumin/Globulin Ratio 09/12/22 09/11/22 09/11/22 05:24 05:25 05:25 WBC RBC 3.42 L Hgb 9.2 L 10.6 L Hct 29.5 L 34.2 L RDW 14.9 H Plt Count MPV 8.6 L Neut % (Auto) 80.3 H Lymph % (Auto) 13.0 L Lymph # (Auto) 1.41 L Immature Gran # Absolute Neutrophils 8.68 H Sodium Creatinine 1.6 H Glucose 190 H Calcium 8.4 L Ionized Calcium Sukumar Total Protein 5.3 L Albumin 2.3 L Albumin/Globulin Ratio 0.8 L 09/10/22 09/10/22 09/10/22 18:10 14:18 14:18 WBC 12.5 H RBC 4.33 L Hgb 11.8 L 11.8 L Hct 36.7 L 36.6 L RDW Plt Count 445 H MPV 8.5 L Neut % (Auto) 91.2 H Lymph % (Auto) 4.4 L Lymph # (Auto) 0.55 L Immature Gran # 0.06 H Absolute Neutrophils 11.36 H Sodium 132 L Creatinine Glucose 162 H Calcium 8.2 L Ionized Calcium Sukumar Total Protein Albumin Albumin/Globulin Ratio Meds: Medications Hydrocodone Bitart/Acetaminophen (Hydrocodone/Apap 5/325mg Tablet) 1 tab PO Q6HP PRN; Protocol PRN Reason: pain Albuterol Sulfate (Albuterol Sulfate 60 Puff Inhaler) 2 puff INH Q4HP PRN PRN Reason: shortness of breath or wheezin Last Admin: 09/11/22 16:40 Dose: 2 puff Amitriptyline HCl (Amitriptyline 10 Mg Tablet) 10 mg PO TID [facility] Last Admin: 09/12/22 21:40 Dose: 10 mg Atenolol (Atenolol 50 Mg Tablet) 50 mg PO DAILY [facility] Last Admin: 09/12/22 09:16 Dose: 50 mg Belladonna Alkaloids/Opium (Opium/Belladonna Alkaloids 30 Mg Supp.Rect) 30 mg MD Q6HP PRN PRN Reason: BLADDER SPASMS Last Admin: 09/11/22 12:19 Dose: 30 mg Cefazolin Sodium (Cefazolin 1 Gm Vial) 2 gm IV Q8H [facility] Last Admin: 09/13/22 05:54 Dose: 2 gm Chlorthalidone (Chlorthalidone 25 Mg Tablet) 25 mg PO QAM [facility] Last Admin: 09/12/22 09:20 Dose: 25 mg Enoxaparin Sodium (Enoxaparin 40 Mg/0.4 Ml Syringe) 40 mg SQ DAILY [facility] Last Admin: 09/12/22 09:15 Dose: 40 mg Hydromorphone HCl (Hydromorphone Product Designer 30 Mg/30 Ml Product Designer.Vial) 0 mg IV UD PRN; Protocol PRN Reason: Pain Last Admin: 09/11/22 15:40 Dose: 30 mg Dextrose/Sodium Chloride (Dextrose 5%-Ns Iv Solution) 1,000 mls @ 75 mls/hr IV .[id number] [facility] Last Admin: 09/12/22 20:26 Dose: 75 mls/hr Acetaminophen (Ofirmev) 650 mg in 65 mls @ 130 mls/hr IV Q6HP PRN; Protocol PRN Reason: PAIN/FEVER > 101 Last Infusion: 09/12/22 20:45 Dose: Infused Sodium Chloride (Sodium Chloride 0.9%) 250 mls @ 20 mls/hr IV .[id number] [facility] Last Admin: 09/13/22 04:25 Dose: 20 mls/hr Labetalol HCl (Labetalol 5 Mg/Ml Ml) 0 mg IV Q2HP PRN PRN Reason: Hypertension Nicotine (Nicotine 21 Mg Patch) 21 mg TOPICAL Q24H [facility] Last Admin: 09/12/22 14:45 Dose: 21 mg Ondansetron HCl (Ondansetron 4 Mg/2 Ml Vial) 4 mg IV Q6HP PRN; Protocol PRN Reason: Nausea And Vomiting Tiotropium [place] [ Spiriva Respimat] 1. 25 Mcg/Act 2 dose INH QDAY [facility] Last Admin: 09/12/22 10:19 Dose: 2 dose Fluticasone/ (Salmeterol 50/100) 1 dose INH BID [facility] Last Admin: 09/12/22 21:39 Dose: 1 dose Simethicone (Simethicone 80 Mg Tab.Chew) 80 mg CHEWED [facility] Stop: 09/13/22 12:31 Last Admin: 09/12/22 21:40 Dose: 80 mg Sodium Chloride (0.9 % Sodium Chloride 10 Ml Syringe) 10 ml IV Q8 [facility] Last Admin: 09/13/22 05:54 Dose: Not Given A/P Narrative A/P Narrative: A: *Right renal mass: s/p nephro-ureterectomy (09/10) -suspected malignant *Acute blood loss anemia on chronic: 2/2 above -hgb 9.2 *Hematuria: *Hypotension: 2/2 above, improved *NOAM on CKD II: 2/2 hypotension, improved *Thrombocytosis: Likely reactive from above, improved *Hyponatremia: improved *Tobacco abuse: *COPD (not on home oxygen): *pyrosis/gas: P: -monitor H&H, transfuse if <7 or symptomatic or further bleeding -IVF, maintain map>65 -Monitor renal fxn, uop, i/o -restarted home BB -carafate/simethacone -cont home IH's, statin -Smoking cessation counseling -pt/ot -ppx: lovenox (hold for hematuria), SCD Time Spent With Patient Time: Total time spent is greater than 50% in coordination of care (as documented) at patient's floor/unit and/or counseling patient: Total time spent with greater than 50% in coordination of care (as documented) at patient's floor/unit and/or counseling patient:: 25 - 35 minutes
[2022-09-13] MEDS: ENOXAPARIN 40 MG/0.4 ML SYRINGE SQ SCH (09:28)
[2022-09-13] MEDS: TIOTROPIUM BROMIDE INH SCH (09:50)
[2022-09-13] MEDS: SALMETEROL INH SCH ×2 (09:50→20:09)
[2022-09-13] MEDS: FLUTICASONE INH SCH ×2 (09:50→20:09)
[2022-09-13] MEDS: AMITRIPTYLINE 10 MG TABLET PO SCH ×3 (09:53→20:09)
[2022-09-13] MEDS: CHLORTHALIDONE 25 MG TABLET PO SCH (09:53)
[2022-09-13] MEDS: ATENOLOL 50 MG TABLET PO SCH (09:53)
[2022-09-13] MEDS: SIMETHICONE 80 MG TAB.CHEW CHEWED SCH ×2 (10:32→18:42)
[2022-09-13] MEDS: DEXTROSE 5%-NS 1,000 ML IV SCH (11:20)
[2022-09-13] MEDS: ACETAMINOPHEN 650 MG/65 ML BAG IV PRN ×2 (11:24→17:32)
--- NOTE | 2022-09-13 12:50 | Urology Progress Note ---
SUBJECTIVE Subjective Patient information: Note initiated : 09/13/22 at 12:43 pm Service Date, if different from initiated Date: [] Patient: Alek Jimenez 71 y/o M admitted on 09/10/22 for Right Radical Nephrectomy, Possible Right. Chief Complaint: [s/p right nephroureterectomy] Principal diagnosis: Right renal mass status post right nephro ureterectomy Interval history: Alek is postoperative day #3 status post right nephro ureterectomy. He is doing extremely well. Today he is transferred from PCU to [facility]. He is ambulating well with a walker. His pain is controlled with a TWISTER TENDER. He continues to have incisional tenderness. He reports that he is having gurgling in his bowels although he has not yet passed gas. Constitutional Vitals: Vital Signs Temp Pulse Resp BP Pulse Ox O2 Del Method O2 Flow Rate 98.7 F 78 24 H 123/70 97 1 09/13/22 12:17 09/13/22 12:17 09/13/22 12:17 09/13/22 12:17 09/13/22 12:17 09/13/22 09:01 09/13/22 09:01 Period Temp Pulse Resp BP Sys/Traore Pulse Ox O2 Del Method O2 Flow Rate Last 24 Hr 97.4 F-98.7 F 64-79 12-33 100-133/63-88 94-100 Nasal Cannula- Nasal Cannula 1-1 Intake and Output 09/13/22 09/13/22 09/13/22 03:59 11:59 19:59 Intake Total 165 1362 Output Total 381 1200 Balance -216 162 Weight 75.795 kg Intake & Output: Intake & Output 09/13/22 09/13/22 09/13/22 03:59 11:59 19:59 Intake Total 165 1362 Output Total 381 1200 Balance -216 162 Weight 75.795 kg Intake: IV 65 1312 Sodium Chloride 0.9% 250 ml @ 247 20 mls/hr IV .[id number] [facility] Rx#: [id number] Dextrose 5%-Ns IV Solution 1, 1000 000 ml @ 75 mls/hr IV .[id number] [facility] Rx#:[id number] Oral 100 50 Output: Drainage 3 Abdomen VANESA Drain 3 Drainage 3 Abdomen VANESA Drain 3 Urine Catheter Amount 375 800 Void Amount 400 Other: Urine Appearance Hematuria Clear Small Blood Clots Uretheral (Balder[place]) Hematuria Small Blood Clots Urine Color Medium Red Blood Tinged Uretheral ([place]) Light [place] Urine Odor Normal General appearance: cooperative, no acute distress and thin Respiratory Respiratory exam: Present normal respiratory exam and CTAB Cardiovascular Cardiovascular exam: Present normal rate and rhythm GI/Abdominal GI/Abdominal exam: Present normal bowel sounds, soft and tenderness Additional comments: The dressing was taken down the wound was inspected and appears to be within normal limits. It is healing appropriately. There is no erythema, edema or dr alexander. The wound was redressed. exam: Present circumcision and normal inspection Expanded Exam Urine Color: Light Remy and Medium [place] Neurological Exam Neurological exam: Present normal gait Psychiatric Psychiatric exam: Present normal affect and normal mood A/P Assessment and plan (1) Right renal mass: Status: Acute Narrative A/P Narrative: Alek is a 71-year-old male who is postoperative day #3 status post right nephro ureterectomy. His labs have for the most part normalized. White blood cell count is 11. Hemoglobin and hematocrit are 9.4 and 29.6 respectively. His serum creatinine has normalized to 1.1. His VANESA drain has had minimal output since yesterday with only 25 mL of serosanguineous fluid within it. His urine is a clear light pink/remy. Lovenox was held yesterday due to an increase in blood in the urine. The patient is ambulating well and his pain is well controlled with the TWISTER TENDER. His dressing was taken down the wound was inspected and appears to be clean, dry and intact. There is no evidence of erythema, infection or drainage. The wound was redressed. The patient was also transferred from PCU to [facility] today. His bowel sounds are excellent although he has not yet passed gas. We will continue with clear liquids for the time being. As soon as he passes gas we will advance his diet. He will continue ambulation. As soon as he is tolerating a diet we will change his pain medicat ions to oral. VANESA drain will likely be removed tomorrow. Time Spent With Patient Time: Total time spent is greater than 50% in coordination of care (as documented) at patient's floor/unit and/or counseling patient:
[2022-09-13] MEDS: NICOTINE 21 MG PATCH TOPICAL SCH (14:08)
[2022-09-14] MEDS: ACETAMINOPHEN 650 MG/65 ML BAG IV PRN ×3 (00:02→22:18)
[2022-09-14] MEDS: DEXTROSE 5%-NS 1,000 ML IV SCH ×2 (02:13→15:47)
[2022-09-14] MEDS: ceFAZolin 1 GM VIAL IV SCH ×3 (06:29→22:15)
[2022-09-14] MEDS: 0.9 % SODIUM CHLORIDE 10 ML SYRINGE IV SCH ×3 (06:41→22:56)
[2022-09-14 07:21] LABS: Hematocrit 30.9 % (40.1-51.0); Hemoglobin 9.7 g/dL (13.7-17.5)
--- NOTE | 2022-09-14 08:19 | Internal Med Progress Note ---
SUBJECTIVE Subjective Patient information: Note initiated : 09/14/22 at 8:18 am Service Date, if different from initiated Date: [] Patient: Alek Jimenez 71 y/o M admitted on 09/10/22 for Right Radical Nephrectomy, Possible Right. Chief Complaint: [] Principal diagnosis: Right renal mass status post right nephro ureterectomy Interval history: Patient underwent right nephrectomy for renal mass. Intraoperatively patient h ad significant blood loss secondary to kidney abutting the vena cava resulting in a small tear. Patient developed hypotension and was given several units of red blood cells as well as IV fluids with improvement. Blood pressure still soft with mild episodes of hypotension. Patient monitored in the ICU on IV fluids. Labs today show anemia thrombocytosis-hyponatremia mild and mild white blood cell count. Patient denies any dizziness lightheadedness currently. No chest pain or shortness of breath. Patient has a history of hypertension hyperlipidemia COPD 09/11 Patient feeling better and doing well. Blood work stable. Blood pressure stable but soft. Patient denies any dizziness lightheadedness chest pain or shortness of breath. Creatinine did elevate likely secondary to hypotension episodes. Monitor urine output and renal function. 09/12 Patient complains of heartburn and gas. Otherwise no new complaints. Hemoglobin has dropped some but only to 9.2. Vital signs stable. Creatinine elevated but improved 09/13 Pyrosis improved after Carafate and simethicone yesterday. Has headache. Gross hematuria in Balderas. Hold Lovenox today. Hemoglobin stable. Creatinine improved. 09/14 Anemia stable. Patient feeling okay. No overnight event or new complaints. Review of Systems: denies fever/chills/nausea/vomiting/chest or abdominal pain/cough/dyspnea/diarrhea. Otherwise see above. Constitutional Vitals: Vital Signs Temp Pulse Resp BP Pulse Ox O2 Del Method O2 Flow Rate 98.7 F 77 20 138/83 93 0 09/14/22 04:00 09/14/22 00:00 09/14/22 06:00 09/14/22 04:00 09/14/22 04:00 09/14/22 04:00 09/14/22 04:00 Period Temp Pulse Resp BP Sys/Traore Pulse Ox O2 Del Method O2 Flow Rate Last 24 Hr 98.2 F-98.7 F 65-78 14-24 98-138/68-88 91-97 Nasal Cannula- Room Air 0-1 Intake and Output 09/13/22 09/14/22 09/14/22 19:59 03:59 11:59 Intake Total 295 1065 350 Output Total 1600 310 750 Balance -1305 755 -400 Weight 77.474 kg Intake & Output: Intake & Output 09/13/22 09/14/22 09/14/22 19:59 03:59 11:59 Intake Total 295 1065 350 Output Total 1600 310 750 Balance -1305 755 -400 Weight 77.474 kg Intake: IV 295 1065 Sodium Chloride 0.9% 250 ml @ 230 20 mls/hr IV .[id number] [facility] Rx#: [id number] Dextrose 5%-Ns IV Solution 1, 1000 000 ml @ 75 mls/hr IV .[id number] [facility] Rx#:[id number] Oral 350 Output: Drainage 35 20 100 Abdomen VANESA Drain 35 20 100 Urine Catheter Amount 1565 290 650 Uretheral ([place]) 250 Other: Urine Appearance Clear Hematuria Clear Hematuria Hematuria Uretheral ([place]) Clear Hematuria Urine Color Blood Tinged Light Red Medium Red Uretheral ([place]) Blood Tinged Urine Odor Normal Exam: General: Alert, Awake, No acute Distress Eyes/N/T: EOMI, Head/Neck: neck supple, CV: RRR, No murmurs, Pulm: Clear b/l, no wheezing/rhonchi/rales Abd: soft, nontender, +BS x4 Ext: no clubbing/cyanosis/edema : [place] in place Neuro: Alert, no focal deficits, moves all extremities, Skin: Pale OBJ DATA Labs CBC & Chem 7: 09/14/22 05:06 09/13/22 05:25 Labs: Abnormal Lab Results 09/14/22 09/13/22 09/13/22 05:06 05:25 05:25 RBC 3.49 L Hgb 9.7 L 9.4 L Hct 30.9 L 29.6 L RDW 15.0 H MPV Neut % (Auto) Lymph % (Auto) Lymph # (Auto) Absolute Neutrophils Creatinine Glucose Calcium 8.5 L Ionized Calcium Sukumar 09/12/22 09/12/22 05:24 05:24 RBC 3.42 L Hgb 9.2 L Hct 29.5 L RDW 14.9 H MPV 8.6 L Neut % (Auto) 80.3 H Lymph % (Auto) 13.0 L Lymph # (Auto) 1.41 L Absolute Neutrophils 8.68 H Creatinine 1.3 H Glucose 116 H Calcium Ionized Calcium Sukumar 0.98 L Meds: Medications Hydrocodone Bitart/Acetaminophen (Hydrocodone/Apap 5/325mg Tablet) 1 tab PO Q6HP PRN; Protocol PRN Reason: pain Albuterol Sulfate (Albuterol Sulfate 60 Puff Inhaler) 2 puff INH Q4HP PRN PRN Reason: shortness of breath or wheezin Last Admin: 09/11/22 16:40 Dose: 2 puff Amitriptyline HCl (Amitriptyline 10 Mg Tablet) 10 mg PO TID [facility] Last Admin: 09/13/22 20:09 Dose: 10 mg Atenolol (Atenolol 50 Mg Tablet) 50 mg PO DAILY [facility] Last Admin: 09/13/22 09:53 Dose: 50 mg Belladonna Alkaloids/Opium (Opium/Belladonna Alkaloids 30 Mg Supp.Rect) 30 mg UT Q6HP PRN PRN Reason: BLADDER SPASMS Last Admin: 09/11/22 12:19 Dose: 30 mg Cefazolin Sodium (Cefazolin 1 Gm Vial) 2 gm IV Q8H [facility] Last Admin: 09/14/22 06:29 Dose: 2 gm Chlorthalidone (Chlorthalidone 25 Mg Tablet) 25 mg PO QAM [facility] Last Admin: 09/13/22 09:53 Dose: 25 mg Hydromorphone HCl (Hydromorphone Inspector [employer] Rope 30 Mg/30 Ml [employer].Vial) 0 mg IV UD PRN; Protocol PRN Reason: Pain Last Admin: 09/11/22 15:40 Dose: 30 mg Dextrose/Sodium Chloride (Dextrose 5%-Ns Iv Solution) 1,000 mls @ 75 mls/hr IV .[id number] [facility] Last Admin: 09/14/22 02:13 Dose: 75 mls/hr Acetaminophen (Ofirmev) 650 mg in 65 mls @ 130 mls/hr IV Q6HP PRN; Protocol PRN Reason: PAIN/FEVER > 101 Last Infusion: 09/14/22 01:18 Dose: Infused Sodium Chloride (Sodium Chloride 0.9%) 250 mls @ 20 mls/hr IV .[id number] [facility] Last Admin: 09/13/22 15:55 Dose: 20 mls/hr Labetalol HCl (Labetalol 5 Mg/Ml Ml) 0 mg IV Q2HP PRN PRN Reason: Hypertension Nicotine (Nicotine 21 Mg Patch) 21 mg TOPICAL Q24H [facility] Last Admin: 09/13/22 14:08 Dose: 21 mg Ondansetron HCl (Ondansetron 4 Mg/2 Ml Vial) 4 mg IV Q6HP PRN; Protocol PRN Reason: Nausea And Vomiting Tiotropium Blakeslee [ Spiriva Respimat] 1. 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 *Acute blood loss anemia on chronic: 2/2 above -hgb stable *Hematuria: *Hypotension: 2/2 above, improved *NOAM on CKD II: 2/2 hypotension, improved *Thrombocytosis: Likely reactive from above, improved *Hyponatremia: improved *Tobacco abuse: *COPD (not on home oxygen): *pyrosis/gas: P: -monitor H&H, transfuse if <7 or symptomatic or further bleeding -IVF, maintain map>65 -Monitor renal fxn, uop, i/o -restarted home BB -carafate/simethacone -cont home IH's, statin -Smoking cessation counseling -pt/ot -ppx: lovenox (hold for hematuria), SCD Time Spent With Patient Time: Total time spent is greater than 50% in coordination of care (as documented) at patient's floor/unit and/or counseling patient: Total time spent with greater than 50% in coordination of care (as documented) at patient's floor/unit and/or counseling patient:: 25 - 35 minutes
[2022-09-14] MEDS: CHLORTHALIDONE 25 MG TABLET PO SCH (08:56)
[2022-09-14] MEDS: ALBUTEROL SULFATE 60 PUFF INHALER INH PRN (08:56)
[2022-09-14] MEDS: ATENOLOL 50 MG TABLET PO SCH (08:56)
[2022-09-14] MEDS: AMITRIPTYLINE 10 MG TABLET PO SCH ×3 (08:56→22:15)
[2022-09-14] MEDS: TIOTROPIUM BROMIDE INH SCH (08:57)
[2022-09-14] MEDS: FLUTICASONE INH SCH ×2 (08:57→22:14)
[2022-09-14] MEDS: SALMETEROL INH SCH ×2 (08:57→22:14)
[2022-09-14] MEDS ORDERED: HYDROcodone/APAP 5/325MG TABLET PO PRN (09:22)
[2022-09-14] MEDS: HYDROcodone/APAP 5/325MG TABLET PO PRN ×3 (11:55→22:15)
[2022-09-14] MEDS: NICOTINE 21 MG PATCH TOPICAL SCH (14:21)
[2022-09-14] MEDS: 0.9 % SODIUM CHLORIDE 250 ML IV SCH ×2 (15:48→18:46)
--- NOTE | 2022-09-14 17:21 | Urology Progress Note ---
SUBJECTIVE Subjective Patient information: Note initiated : 09/14/22 at 5:18 pm Service Date, if different from initiated Date: [] Patient: Alek Jimenez a 71 y/o M admitted on 09/10/22 for Right Radical Nephrectomy, Possible Right. Chief Complaint: [Right renal mass status post right nephroureterectomy] Principal diagnosis: Right renal mass status post right nephro ureterectomy Interval history: Alek is a 71-year-old male who is postoperative day #4 status post right nephro ureterectomy. He is doing much better. He is ambulating well. He is passing gas. His diet has been advanced to a regular diet which he appears to be tolerating well. He was switched to oral pain medications which he also appears to be tolerating well. His VANESA drain had 50 mL of output since yesterday. Constitutional Vitals: Vital Signs Temp Pulse Resp BP Pulse Ox O2 Del Method O2 Flow Rate 97.9 F 67 18 138/83 95 0 09/14/22 12:00 09/14/22 12:00 09/14/22 12:00 09/14/22 12:00 09/14/22 12:00 09/14/22 12:00 09/14/22 04:00 Period Temp Pulse Resp BP Sys/Traore Pulse Ox O2 Del Method O2 Flow Rate Last 24 Hr 97.9 F-98.7 F 65-77 16-20 98-138/68-83 92-98 Nasal Cannula- Room Air 0-1 Intake and Output 09/14/22 09/14/22 09/14/22 03:59 11:59 19:59 Intake Total 6314 433 2741 Output Total 310 1500 Balance 755 -900 1065 Weight 77.474 kg Patient Weight 09/15/22 03:59 Weight 77.474 kg Intake & Output: Intake & Output 09/14/22 09/14/22 09/14/22 03:59 11:59 19:59 Intake Total 1596 133 6400 Output Total 310 1500 Balance 755 -900 1065 Weight 77.474 kg Intake: IV 2182 820 2689 Sodium Chloride 0.9% 250 ml @ 250 20 mls/hr IV .[id number] [facility] Rx#: [id number] Dextrose 5%-Ns IV Solution 1, 1000 1000 000 ml @ 75 mls/hr IV .[id number] [facility] Rx#:[id number] Oral 350 Output: Drainage 20 100 Abdomen VANESA Drain 20 100 Urine Catheter Amount 290 1400 Other: Urine Appearance Hematuria Clear Small Blood Clots Uretheral ([place]) Clear Hematuria Small Blood Clots Urine Color Light Red Light Red Uretheral ([place]) Light Red Urine Odor Normal General appearance: cooperative, no acute distress and thin Head Head exam: Present atraumatic, normal inspection and normocephalic Neck Neck exam: Present normal inspection Respiratory Respiratory exam: Present normal respiratory exam and CTAB Cardiovascular Cardiovascular exam: Present normal rate and rhythm GI/Abdominal GI/Abdominal exam: Present normal bowel sounds and soft; Absent distended Additional comments: Incisional tenderness exam: Present circumcision and normal inspection Expanded Exam Urine Color: Medium Red Neurological Exam Neurological exam: Present normal gait Psychiatric Psychiatric exam: Present normal affect and normal mood A/P Assessment and plan (1) Right renal mass: Status: Acute Narrative A/P Narrative: Alek is a 71-year-old male with a history of a right renal mass status post right nephro ureterectomy. He is doing well. He began to pass gas and has good bowel sounds. His diet has been advanced to regular. He is tolerating this well. We have started him on oral pain medications. He is ambulating well. His [place] catheter remains in place. The urine alternates between clear and clear medium red. His VANESA drain was removed this evening. Assuming he continues to do well he may be able to go home tomorrow. We will reevaluate in the morning. His hemoglobin today is come up to 9.6. Overall he is doing very well. Pathology remains pending. Time Spent With Patient Time: Total time spent is greater than 50% in coordination of care (as documented) at patient's floor/unit and/or counseling patient:
[2022-09-14] MEDS ORDERED: HYDROmorphone 0.5 MG/0.5 ML SYRINGE IV PRN (17:26)
[2022-09-15] MEDS: DEXTROSE 5%-NS 1,000 ML IV SCH ×2 (03:23→05:12)
[2022-09-15] MEDS: 0.9 % SODIUM CHLORIDE 10 ML SYRINGE IV SCH (04:59)
[2022-09-15] MEDS: ceFAZolin 1 GM VIAL IV SCH (05:06)
[2022-09-15] MEDS: HYDROcodone/APAP 5/325MG TABLET PO PRN (05:11)
--- NOTE | 2022-09-15 07:53 | Urology Progress Note ---
SUBJECTIVE Subjective Patient information: Note initiated : 09/15/22 at 7:46 am Service Date, if different from initiated Date: [] Patient: Alek Jimenez 71 y/o M admitted on 09/10/22 for Right Radical Nephrectomy, Possible Right. Chief Complaint: [Right renal mass status post right nephro ureterectomy] Principal diagnosis: Right renal mass status post right nephro ureterectomy Interval history: Alek is postoperative day #5 status post right nephro ureterectomy. He is doing well. He tolerated his pain with only oral pain medications last night and did not need the [employer]. He is tolerating a regular diet and passing gas. He is ambulating well. Constitutional Vitals: Vital Signs Temp Pulse Resp BP Pulse Ox O2 Del Method O2 Flow Rate 97.9 F 71 18 125/83 95 0 09/15/22 04:00 09/15/22 04:00 09/15/22 04:00 09/15/22 04:00 09/15/22 04:00 09/15/22 04:00 09/14/22 04:00 Period Temp Pulse Resp BP Sys/Traore Pulse Ox O2 Del Method O2 Flow Rate Last 24 Hr 97.1 F-98.2 F 67-84 16-20 125-138/77-83 94-98 Room Air-Room Air Intake and Output 09/14/22 09/15/22 09/15/22 19:59 03:59 11:59 Intake Total 3871 208 6781 Output Total 275 850 Balance 910 305 500 Weight 77.474 kg 79.288 kg Intake & Output: Intake & Output 09/14/22 09/15/22 09/15/22 19:59 03:59 11:59 Intake Total 5021 829 0393 Output Total 275 850 Balance 910 305 500 Weight 77.474 kg 79.288 kg Intake: IV 1065 65 1250 Sodium Chloride 0.9% 250 ml @ 250 20 mls/hr IV .[id number] [facility] Rx#: [id number] Dextrose 5%-Ns IV Solution 1, 1000 1000 000 ml @ 75 mls/hr IV .[id number] [facility] Rx#:[id number] Oral 120 240 100 Output: Urine Catheter Amount 275 850 Uretheral ([place]) 275 Other: Meal Dinner Percent of Meal Consumed 75% Feeding Ability Assist with Tray Set Up Urine Appearance Hematuria Uretheral ([place]) Clear Hematuria Small Blood Clots Urine Color Medium Red Uretheral ([place]) Medium Red Light Red # Bowel Movements 0 General appearance: cooperative, no acute distress and thin Head Head exam: Present atraumatic, normal inspection and normocephalic Respiratory Respiratory exam: Present normal respiratory exam and CTAB Cardiovascular Cardiovascular exam: Present normal rate and rhythm GI/Abdominal GI/Abdominal exam: Present normal bowel sounds and soft Expanded Exam Urine Color: Medium Red Psychiatric Psychiatric exam: Present normal affect and normal mood A/P Assessment and plan (1) Right renal mass: Status: Acute Narrative A/P Narrative: Alek is doing well postoperative day #5 status post right nephro ureterectomy for a presumed right renal mass. He is currently ambulating well. His pain is well controlled with oral pain medications. He has good bowel sounds and is passing gas. He is tolerating a regular diet. I plan to send him home today with a [place] catheter in place. This will need to remain in place for least 10 days. He will go home with a leg bag and a night bag. He will be taught chair use. I will send a prescription for pain medication and a stool softener. He should no longer need antibiotics the dressing should be changed as needed with a dry dressing. He may shower and pat the wound dry. He should not take a b ath. If there are any problems or issues he should call. Otherwise, we will plan to follow-up with him this coming Wednesday. Time Spent With Patient Time: Total time spent is greater than 50% in coordination of care (as documented) at patient's floor/unit and/or counseling patient:
--- NOTE | 2022-09-15 07:57 | Discharge Summary ---
Discharge Provider Provider IMPORTANT FOLLOW-UP INFORMATION FOR PCP: Patient information: Note initiated : 09/15/22 at 7:53 am Service Date, if different from initiated Date: [] Patient: Alek Jimenez 71 y/o M admitted on 09/10/22 for Right Radical Nephrectomy, Possible Right. Chief Complaint: [Right renal mass status post right nephro ureterectomy] Date of admission: 09/10/22 06:06 Discharge date: 09/15/22 Primary care physician: Kirill Garg MD Admitting clinician: Tristen Nicole Attending physician on admission: Tristen Nicole Consults: 09/10/22 13:55 Consult to Physician [CONS] Routine Comment: Consulting Provider: Deon Meneses Reason For Exam: Physician to Consult Attending physician on discharge: Tristen Nicole Discharging clinician: Tristen Nicole COURSE Hospital Course Hospital course: The patient was admitted on September 10, 2022 for right nephro ureterectomy due to a presumed right renal mass. Surgery was significant for a tear of the vena cava which caused significant blood loss of approximately 1200 mL. 2 units of packed red cells were placed intraoperatively. The vena cava was repaired and the patient did well thereafter. The patient was initially in the ICU for close monitoring. On postoperative day #1 he was transferred to PCU. On postoperative day #3 he was transferred to the [facility] floor. He has continued to progress as expected. Currently his pain is controlled with only oral pain medication. He is passing gas and tolerating a regular diet. He is ambulating well. His Guzman catheter remains in place with alternating clear and red urine. This is expected to he is being discharged home on postoperative day #5 Discharge diagnosis: Right renal mass status post right nephro ureterectomy Reason for admission: Right renal mass Procedures: Right nephro ureterectomy Complications: Small tear of vena cava with blood loss intraoperatively. Repaired. Time Spent with Patient Time attestation: Total time spent providing and/or coordinating discharge services: Time spent: Less than 30 minutes Physical Examination Vital Signs Vital signs: Temp Pulse Resp BP Pulse Ox O2 Del Method O2 Flow Rate 97.9 F 71 18 125/83 95 0 09/15/22 04:00 09/15/22 04:00 09/15/22 04:00 09/15/22 04:00 09/15/22 04:00 09/15/22 04:00 09/14/22 04:00 General physical appearance General physical exam: well developed, well nourished and no distress Head Head exam IM: Present atraumatic, normal inspection and normocephalic Respiratory Respiratory exam: normal expansion, normal respiratory effort and clear to auscultation Abdomen Abdomen: Present soft, bowel sounds, surgical scars and wound Genitourinary Genitourinary (Male): Present normal penis with no external lesions Neurologic Neurologic: Present normal coordination and normal sensation Psychiatric Psychiatric: Present oriented to time, oriented to person, oriented to place, speech is normal and memory intact Discharge Plan Patient/Caregiver Discharge Instructions Activity: increase activity as tolerated Diet: Regular Diet Activity Restrictions/Additional Instructions: Light activity as tolerated. No heavy lifting. May change the dressing as needed with a dry dressing. May shower but no baths. Guzman catheter care. Prescriptions: New hydrocodone-acetaminophen 5-325 mg tablet 1 tab PO Q6H PRN (Reason: pain) 7 Days Qty: 20 0RF docusate sodium [Colace] 100 mg capsule 100 mg PO BID Qty: 60 1RF Continued Spiriva Respimat 1.25 mcg/actuation mist 2 puff INHALATION QDAY Qty: 4 4RF fluticasone propion-salmeterol [Wixela Inhub] 100-50 mcg/dose blister with device 1 inh inhalation BID Qty: 60 4RF Rx Instructions: inhale 1 puff by mouth twice a day nicotine [Nicoderm CQ] 21 mg/24 hr patch 24 hour 1 patch transdermal Q24H Qty: 28 6RF albuterol sulfate [Ventolin HFA] 90 mcg/actuation HFA aerosol inhaler 2 puff INHALATION .Q4-6H PRN (Reason: shortness of breath or wheezing) atenolol-chlorthalidone 50-25 mg tablet 1 tab PO QAM Rx Instructions: take 1 tablet by mouth once daily amitriptyline 10 mg tablet 10 mg PO TID Rx Instructions: take 1 tablet by mouth three times a day simvastatin 40 mg tablet 40 mg PO QAM tamsulosin 0.4 mg capsule 0.4 mg PO QHS Qty: 30 6RF Discontinued hydrocodone-acetaminophen 5-325 mg tablet 1 tab PO Q6H PRN (Reason: pain) Qty: 78 0RF Follow Up Plan Patient Disposition: Home, Self-Care Discharge Orders: Discharge Order (Routine); Ordered 09/15/22 Ordered By: Tristen Nicole Pending Pending Pending: Resuscitation Status Resuscitate (Full Code) Diet Regular Diet Start WedSep 14 1419 Hydrocodone Bitart/Acetaminophen (Hydrocodone/Apap 5/325mg Tablet) 1 tab PO Q6HP PRN; Protocol PRN Reason: pain Last Admin: 09/15/22 05:11 Dose: 1 tab Documented By: Admin: 09/14/22 22:15 Dose: 1 tab Documented By: Admin: 09/14/22 17:19 Dose: 1 tab Documented By: Admin: 09/14/22 11:55 Dose: 1 tab Documented By: MEGHAN Albuterol Sulfate (Albuterol Sulfate 60 Puff Inhaler) 2 puff INH Q4HP PRN PRN Reason: shortness of breath or wheezin Last Admin: 09/11/22 16:40 Dose: 2 puff Documented By: COLETTE Amitriptyline HCl (Amitriptyline 10 Mg Tablet) 10 mg PO TID [facility] Last Admin: 09/14/22 22:15 Dose: 10 mg Documented By: Admin: 09/14/22 14:22 Dose: 10 mg Documented By: Admin: 09/14/22 08:56 Dose: 10 mg Documented By: Admin: 09/13/22 20:09 Dose: 10 mg Documented By: [email or web address] Admin: 09/13/22 14:07 Dose: 10 mg Documented By: Admin: 09/13/22 09:53 Dose: 10 mg Documented By: Admin: 09/12/22 21:40 Dose: 10 mg Documented By: Admin: 09/12/22 14:45 Dose: 10 mg Documented By: Admin: 09/12/22 09:20 Dose: 10 mg Documented By: Admin: 09/11/22 20:42 Dose: 10 mg Documented By: Admin: 09/11/22 14:24 Dose: 10 mg Documented By: Admin: 09/11/22 09:11 Dose: 10 mg Documented By: ARTIS Atenolol (Atenolol 50 Mg Tablet) 50 mg PO DAILY [facility] Last Admin: 09/14/22 08:56 Dose: 50 mg Documented By: Admin: 09/13/22 09:53 Dose: 50 mg Documented By: Admin: 09/12/22 09:16 Dose: 50 mg Documented By: ALPA Cefazolin Sodium (Cefazolin 1 Gm Vial) 2 gm IV Q8H [facility] Last Admin: 09/15/22 05:06 Dose: 2 gm Documented By: Admin: 09/14/22 22:15 Dose: 2 gm Documented By: Admin: 09/14/22 14:22 Dose: 2 gm Documented By: Admin: 09/14/22 06:29 Dose: 2 gm Documented By: [email or web address] Admin: 09/13/22 21:38 Dose: 2 gm Documented By: [email or web address] Admin: 09/13/22 14:07 Dose: 2 gm Documented By: Admin: 09/13/22 05:54 Dose: 2 gm Documented By: Admin: 09/12/22 21:40 Dose: 2 gm Documented By: Admin: 09/12/22 14:07 Dose: 2 gm Documented By: ALPA Chlorthalidone (Chlorthalidone 25 Mg Tablet) 25 mg PO QAM [facility] Last Admin: 09/14/22 08:56 Dose: 25 mg Documented By: Admin: 09/13/22 09:53 Dose: 25 mg Documented By: Admin: 09/12/22 09:20 Dose: 25 mg Documented By: ALPA Hydromorphone HCl (Hydromorphone 0.5 Mg/0.5 Ml Syringe) 0.5 mg IV Q2HP PRN; Protocol PRN Reason: Per Pain Protocol Last Admin: 09/14/22 19:04 Dose: 0.5 mg Documented By: ALIYAH Dextrose/Sodium Chloride (Dextrose 5%-Ns Iv Solution) 1,000 mls @ 75 mls/hr IV .[id number] [facility] Last Admin: 09/15/22 05:12 Dose: 75 mls/hr Documented By: Infusion: 09/15/22 05:07 Dose: 75 mls/hr Documented By: Admin: 09/15/22 03:23 Dose: Not Given Documented By: Admin: 09/14/22 15:47 Dose: 75 mls/hr Documented By: Infusion: 09/14/22 15:33 Dose: 75 mls/hr Documented By: Admin: 09/14/22 02:13 Dose: 75 mls/hr Documented By: Infusion: 09/14/22 02:12 Dose: 0 mls/hr Documented By: Admin: 09/13/22 11:20 Dose: 75 mls/hr Documented By: Infusion: 09/13/22 09:46 Dose: 75 mls/hr Documented By: Admin: 09/12/22 20:26 Dose: 75 mls/hr Documented By: Infusion: 09/12/22 18:35 Dose: 75 mls/hr Documented By: Admin: 09/12/22 05:15 Dose: 75 mls/hr Documented By: Infusion: 09/12/22 05:15 Dose: 75 mls/hr Documented By: Admin: 09/11/22 16:08 Dose: 75 mls/hr Documented By: Infusion: 09/11/22 15:08 Dose: 75 mls/hr Documented By: Admin: 09/11/22 01:48 Dose: 75 mls/hr Documented By: Infusion: 09/11/22 01:48 Dose: 75 mls/hr Documented By: Admin: 09/10/22 15:16 Dose: 75 mls/hr Documented By: ARTIS Acetaminophen (Ofirmev) 650 mg in 65 mls @ 130 mls/hr IV Q6HP PRN; Protocol PRN Reason: PAIN/FEVER > 101 Last Infusion: 09/14/22 22:55 Dose: 0 mls/hr Documented By: Admin: 09/14/22 22:18 Dose: 130 mls/hr Documented By: Infusion: 09/14/22 15:52 Dose: 0 mls/hr Documented By: Admin: 09/14/22 13:50 Dose: 130 mls/hr Documented By: Infusion: 09/14/22 01:18 Dose: 0 mls/hr Documented By: Admin: 09/14/22 00:02 Dose: 130 mls/hr Documented By: Infusion: 09/13/22 18:35 Dose: 0 mls/hr Documented By: Admin: 09/13/22 17:32 Dose: 130 mls/hr Documented By: Infusion: 09/13/22 11:54 Dose: 0 mls/hr Documented By: Admin: 09/13/22 11:24 Dose: 130 mls/hr Documented By: Infusion: 09/12/22 20:45 Dose: 0 mls/hr Documented By: Admin: 09/12/22 20:10 Dose: 130 mls/hr Documented By: Infusion: 09/12/22 14:54 Dose: 0 mls/hr Documented By: Admin: 09/12/22 14:07 Dose: 130 mls/hr Documented By: Infusion: 09/12/22 08:46 Dose: 0 mls/hr Documented By: Admin: 09/12/22 07:42 Dose: 130 mls/hr Documented By: Infusion: 09/11/22 21:40 Dose: 0 mls/hr Documented By: Admin: 09/11/22 21:08 Dose: 130 mls/hr Documented By: Infusion: 09/11/22 13:36 Dose: 0 mls/hr Documented By: Admin: 09/11/22 13:05 Dose: 130 mls/hr Documented By: Infusion: 09/11/22 06:28 Dose: 0 mls/hr Documented By: Admin: 09/11/22 04:48 Dose: 130 mls/hr Documented By: Infusion: 09/10/22 23:35 Dose: 0 mls/hr Documented By: Admin: 09/10/22 22:52 Dose: 130 mls/hr Documented By: MELECIO Sodium Chloride (Sodium Chloride 0.9%) 250 mls @ 20 mls/hr IV .[id number] [facility] Infusion: 09/15/22 06:37 Dose: 20 mls/hr Documented By: Admin: 09/14/22 18:46 Dose: Not Given Documented By: Admin: 09/14/22 15:48 Dose: 20 mls/hr Documented By: Infusion: 09/14/22 04:25 Dose: 20 mls/hr Documented By: Admin: 09/13/22 15:55 Dose: 20 mls/hr Documented By: Infusion: 09/13/22 15:55 Dose: 20 mls/hr Documented By: Admin: 09/13/22 04:25 Dose: 20 mls/hr Documented By: Infusion: 09/13/22 04:25 Dose: 20 mls/hr Documented By: Admin: 09/12/22 16:03 Dose: 20 mls/hr Documented By: NELLI Nicotine (Nicotine 21 Mg Patch) 21 mg TOPICAL Q24H [facility] Admin: 09/14/22 14:21 Dose: 21 mg Documented By: Admin: 09/13/22 14:08 Dose: 21 mg Documented By: Admin: 09/12/22 14:45 Dose: 21 mg Documented By: Admin: 09/11/22 14:24 Dose: 21 mg Documented By: Admin: 09/10/22 15:39 Dose: 21 mg Documented By: COLETTE Tiotropium [place] [ Spiriva Respimat] 1. 25 Mcg/Act 2 dose INH QDAY [facility] Admin: 09/14/22 08:57 Dose: 2 dose Documented By: Admin: 09/13/22 09:50 Dose: 2 dose Documented By: Admin: 09/12/22 10:19 Dose: 2 dose Documented By: Admin: 09/11/22 13:12 Dose: 2 dose Documented By: Admin: 09/11/22 09:12 Dose: Not Given Documented By: ARTIS Fluticasone/ (Salmeterol 50/100) 1 dose INH BID [facility] Admin: 09/14/22 22:14 Dose: 1 dose Documented By: Admin: 09/14/22 08:57 Dose: 1 dose Documented By: Admin: 09/13/22 20:09 Dose: 1 dose Documented By: Admin: 09/13/22 09:50 Dose: 1 dose Documented By: Admin: 09/12/22 21:39 Dose: 1 dose Documented By: Admin: 09/12/22 10:20 Dose: 1 dose Documented By: Admin: 09/11/22 20:42 Dose: 1 dose Documented By: AKASH Sodium Chloride (0.9 % Sodium Chloride 10 Ml Syringe) 10 ml IV Q8 [facility] Admin: 09/15/22 04:59 Dose: Not Given Documented By: Admin: 09/14/22 22:56 Dose: Not Given Documented By: Admin: 09/14/22 14:22 Dose: 10 ml Documented By: Admin: 09/14/22 06:41 Dose: 10 ml Documented By: Admin: 09/13/22 20:04 Dose: Not Given Documented By: Admin: 09/13/22 14:08 Dose: 10 ml Documented By: Admin: 09/13/22 05:54 Dose: Not Given Documented By: Admin: 09/12/22 21:40 Dose: Not Given Documented By: Admin: 09/12/22 14:10 Dose: 10 ml Documented By: Admin: 09/12/22 05:21 Dose: Not Given Documented By: Admin: 09/11/22 22:14 Dose: Not Given Documented By: Admin: 09/11/22 14:24 Dose: Not Given Documented By: Admin: 09/11/22 06:28 Dose: Not Given Documented By: Admin: 09/10/22 20:49 Dose: Not Given Documented By: Admin: 09/10/22 15:17 Dose: 10 ml Documented By: ARTIS Shift Summary 09/15/22 04:34 Shift Summary by Mayelin Harvey Primary Diagnosis: Primary Diagnosis: Right Nephro-ureterectomy Registration Status: Date of Surgery (if applicable): 09/10/22 Dr. Nicole Right Nephro-ureterectomy surgery, had complications. inferior vena cava was torn 1 cm(sutured in surgery. 1500 ml blood loss. Given 2 units PRBC, a few liters of IV fluid). See operative note for details. Surgery involved opening the bladder-there is expected blood in the catheter Pertinent Medical Dx/Issue(s): Tobacco use, hyperlipidemia, hypertension, former hernias, appendectomy, BPH with home guzman use(hx of 6 episodes of home use-last in 2021) instructional assistant/Interventions: Bowels more active today. No flatus. Lungs clear/dim. . Neuro A/O x 4. Up for meals at bedside. regular diet. Incentive spirometry. Abdominal binder only needs to be worn while ambulating, however pt likes wearing it at all times. Med management (antibiotics, diuretics, BP):D5NS @ 75 ml/hr to left forearm. Ancef 2G IVP. dilaudid and norco's Ofirmev x 1 Nicoderm patch Skin/Wound Care: Midline abdominal incision with erica drsg CDI. abdominal binder remains on per patient request. Refuses turns, does shift himself around in the bed for comfort, does not want staff moving him with the draw sheet due to pain. Vital Signs with Trends: VSS, O2 RA Pain management (acute vs. chronic): Dilaudid, Ofirmev 650mg, splinting, walking. Adamantly refuses turns and prefers to stand to move himself up in bed if slides down. Lab/Rad (abnormals, trends): labs pending. Neuro/Mental Status: A/O x 4, very pleasant. Cardiac Rhythm, Alarm Settings: Urinary Elimination Device: 22 uzbek guzman w/urometer draining blood tinged urine(expected from surgery) that continues to lighten up in color. Date of last BM: Prior to admit. occasional belching, no flatus. Lines/Tubes:IV RFA Activity: Up with SBA, tolerates very well and enjoys walking. Discharge Plan (needs, disposition, etc): TBD, anticipate home with , ? home health assist. Questions/ Needs for physician: Initialized on 09/15/22 04:34 - END OF NOTE
[2022-09-15] MEDS: CHLORTHALIDONE 25 MG TABLET PO SCH (08:59)
[2022-09-15] MEDS: ALBUTEROL SULFATE 60 PUFF INHALER INH PRN (08:59)
[2022-09-15] MEDS: ATENOLOL 50 MG TABLET PO SCH (08:59)
[2022-09-15] MEDS: AMITRIPTYLINE 10 MG TABLET PO SCH (08:59)
[2022-09-15] MEDS: SALMETEROL INH SCH (09:00)
[2022-09-15] MEDS: 0.9 % SODIUM CHLORIDE 250 ML IV SCH (09:00)
[2022-09-15] MEDS: FLUTICASONE INH SCH (09:00)
[2022-09-15] MEDS: TIOTROPIUM BROMIDE INH SCH (09:01)
[2022-09-15 09:07] LABS: Hematocrit 31.1 % (40.1-51.0); Hemoglobin 9.9 g/dL (13.7-17.5)
== END 2022-09-15 11:20 | disposition home or self-care (01) | DRG 657 ==
LOC: MEDSUR 06:06 → ICU 14:59 → MEDSUR 09-13 12:27
PROVIDERS: ADMIT Urology; ATTEND Urology